=== PATIENT | female | born 1955 | race Caucasian/White ===

== ENCOUNTER 2017-11-10 14:25 | Inpatient (IN) | payer BC ==
--- NOTE | ~2017-11-10 | PN ---
PATIENT:MIQUEL REES MEDICAL RECORD: [id number] LOCATION:[facility] ADMISSION DATE: 11/10/17 PROGRESS NOTE DATE OF SERVICE: 11/13/2017 CHIEF COMPLAINT: Better. I personally reviewed her CT images. I personally reviewed the CT report. I personally discussed her case with Dr. Toledo. She does not appear to have a small-bowel obstruction. She does not appear to have an ileus. She does not appear to have active diverticulitis. There is no free air. No inflammatory changes around the sigmoid colon. No evidence of perforation. She does have diverticulosis; however. She is tolerating a liquid diet. I think we can advance her up to a regular diet. I will see her on a p.r.n. basis. When she is dismissed home, there is no need for her to follow up with me in the office. Nothing aggravates. Nothing alleviates. No peritonitis on examination. This is a progress note addendum. For the typed portion of the progress note, please see the chart. This would include the past medical and surgical history, current medications, allergies, social history as well as family history. REVIEW OF SYSTEMS: No nausea, no vomiting, no fever, no chills, no chest pain, no shortness of breath, no abdominal pain. Review of systems is negative other than as is described above. PHYSICAL EXAMINATION: GENERAL: The patient does not appear acutely ill. She does not appear chronically ill. VITAL SIGNS: Reviewed. The entire physical examination was performed in the presence of a female nurse. EARS: External ears appear normal. EYES: Extraocular movements are intact. NECK: Trachea is midline. CHEST: No intercostal retractions. PULMONARY: Nonlabored, no stridor. ABDOMEN: Nontender. EXTREMITIES: No peripheral cyanosis. INTEGUMENT: There is an intertriginous rash. BACK: No thoracic kyphosis. PSYCHIATRIC: Normal affect. NEUROLOGIC: Nonfocal, no lethargy. The patient answers questions appropriately and moves all extremities well. LYMPHATIC: No lymphangitic streaking of the exposed extremities. IMPRESSION: 1. Diverticulosis without evidence of diverticulitis. 2. No small-bowel obstruction or ileus. PLAN: Magnesium citrate for constipation. Regular diet. I will see her on a p.r.n. basis. TRANSINT:[id number] Voice Confirmation ID: [id number] DOCUMENT ID: [id number] PROGRESS NOTE [id number] MIQUEL REES, CORNELIO BEVERLY at 1607 CC: [id number] DICTATION DATE: 11/13/171933 SHELTER MONITOR: 11/14/17 1146 DIS IN 11/14/17 [place] [id number] [place] [id number]
--- NOTE | ~2017-11-10 | CN ---
PATIENT NAME:MIQUEL REES MEDICAL RECORD: [id number] : 57 LOCATION:[facility] ADMIT DATE: 11/10/17 ACCOUNT: [id number] CONSULTING PHYSICIAN: CORNELIO SANDHU MD REFERRING PHYSICIAN: JANKI JERRY MD DATE OF CONSULTATION: 11/12/2017 CHIEF COMPLAINT: None. HISTORY OF PRESENT ILLNESS: The patient recently was treated in [place]. Initially, she was treated for diverticulitis as an outpatient. She then developed a small-bowel obstruction, which required nasogastric tube decompression. It appears that the small-bowel obstruction has resolved. She is currently nontender. She has been having some epigastric pain and this is being worked up by the gastroenterologic team. She is nontender in the rest of her abdomen and there is no evidence of peritonitis to percussion or cough. I am going to order a CT scan to better determine whether she has ongoing diverticulitis or not. This will be with IV and oral contrast. I will also start her on intravenous antibiotics. This is a consultation note addendum. For the typed portion of the consultation note, please see the chart. She has no aggravating or alleviating factors. The typed portion in the chart would include the past medical and surgical history, current medications, allergies, social history as well as family history. REVIEW OF SYSTEMS: Currently without nausea or vomiting. No fever, no chills. No lower abdominal pain, only upper abdominal pain, no back pain. No headache, no shortness of breath, no chest pain. Review of systems is negative other than as is described above. PHYSICAL EXAMINATION: GENERAL: The patient does not appear acutely ill. She does not appear chronically ill. VITAL SIGNS: Reviewed. EARS: External ears appear normal. EYES: Extraocular movements are intact. NECK: Trachea is midline. CHEST: No intercostal retractions. PULMONARY: Nonlabored, no stridor. ABDOMEN: Nontender in the lower abdomen. Upper abdominal tenderness; however, without guarding. BACK: There is no kyphosis. PSYCHIATRIC: Normal affect. NEUROLOGIC: Nonfocal, no lethargy. The patient answers questions appropriately, moves all extremities well. IMPRESSION: 1. Resolved small-bowel obstruction. 2. Diverticulitis, improved. PLAN: IV antibiotics. CT of the abdomen and pelvis with IV and oral contrast in the morning. CONSULT REPORT [id number] MIQUEL REES TRANSINT:[id number] Voice Confirmation ID: [id number] DOCUMENT ID: [id number] CORNELIO SANDHU MD at 1019 CC: [id number] DICTATION DATE: 11/12/171941 PRODUCT DEVELOPMENT ECOLOGIST: 11/13/17 0130 ADM IN [facility] [address] [place] [place] [id number]
[2017-11-10] MEDS ORDERED: LEVOTHYROXINE137 MCG PO (19:59)
[2017-11-10] MEDS ORDERED: MAALOX ADVANCE355 ML PO (20:00)
[2017-11-10] MEDS ORDERED: BAYER CHEWABLE81 MG PO (20:00)
[2017-11-10 20:01] VITALS: BP 133/73; BMI 41.3
[2017-11-10] MEDS ORDERED: NAPROSYN500 MG PO (20:01)
[2017-11-10] MEDS ORDERED: PROBIOTIC250 MG PO (20:01)
[2017-11-10 20:06] LABS: BASOPHILS 0.3 % (0-2); HEMATOCRIT 36.4 % (36.0-48.0); HEMOGLOBIN 12.2 g/dL (12-16); IMMATURE GRANULOCYTES 0.1 % (0-5); LYMPHOCYTES 12.1 % (15-50); MCH 31.3 pg (26.0-34.0); MCHC 33.5 g/dL (31.0-37.0); MCV 93.3 fL (80.0-100.0); MEAN PLATELET VOLUME 11.4 fL (7.4-10.4); MONOCYTES 7.8 % (2-11); NEUTROPHILS 78.7 % (40-80); PLATELET COUNT 165 10x3/uL (130-400); RDW 12.7 % (11.5-14.5); WBC 7.8 10x3/uL (4.8-10.8)
[2017-11-10 20:21] LABS: ALBUMIN 3.4 g/dL (3.4-5.0); ALKALINE PHOSPHATASE 66 U/L (46-116); ALT (SGPT) 98 U/L (10-68); BILIRUBIN - TOTAL 1.88 mg/dL (0.2-1.3); CALC OSMOLALITY 276 mosm/kg (275-300); CALCIUM 8.5 mg/dL (8.5-10.1); CARBON DIOXIDE 25.5 mmol/L (21.0-32.0); CHLORIDE - SERUM 105 mmol/L (98-107); CREATININE - SERUM 0.6 mg/dL (0.6-1.3); GLUCOSE 108 mg/dL (74-106); MAGNESIUM - SERUM 1.9 mg/dL (1.8-2.4); PHOSPHOROUS 2.8 mg/dL (2.5-4.9); POTASSIUM - SERUM 3.4 mmol/L (3.5-5.1); PROTEIN - SERUM 6.2 g/dL (6.4-8.2); SODIUM 139 mmol/L (136-145); UREA NITROGEN 6 mg/dL (7-18); eGFR NON AFRICAN AMERICAN > 90 mL/min (90-120)
[2017-11-10 22:10] VITALS: BP 138/73
[2017-11-11 01:01] VITALS: BP 146/67
[2017-11-11 05:30] LABS: BASOPHILS 0.1 % (0-2); EOSINOPHILS 1.9 % (0-7); HEMATOCRIT 35.6 % (36.0-48.0); HEMOGLOBIN 11.7 g/dL (12-16); IMMATURE GRANULOCYTES 0.1 % (0-5); LYMPHOCYTES 11.5 % (15-50); MCH 31.1 pg (26.0-34.0); MCHC 32.9 g/dL (31.0-37.0); MCV 94.7 fL (80.0-100.0); MONOCYTES 7.8 % (2-11); NEUTROPHILS 78.6 % (40-80); PLATELET COUNT 152 10x3/uL (130-400); RBC 3.76 10x6/uL (4.00-5.40); RDW 12.8 % (11.5-14.5); WBC 7.3 10x3/uL (4.8-10.8)
[2017-11-11 05:39] VITALS: BP 176/66
[2017-11-11 05:47] LABS: ALBUMIN 3.3 g/dL (3.4-5.0); ALKALINE PHOSPHATASE 63 U/L (46-116); ALT (SGPT) 87 U/L (10-68); CALC OSMOLALITY 277 mosm/kg (275-300); CARBON DIOXIDE 23.3 mmol/L (21.0-32.0); CHLORIDE - SERUM 106 mmol/L (98-107); CREATININE - SERUM 0.6 mg/dL (0.6-1.3); GLUCOSE 113 mg/dL (74-106); MAGNESIUM - SERUM 2.2 mg/dL (1.8-2.4); PHOSPHOROUS 3.2 mg/dL (2.5-4.9); POTASSIUM - SERUM 3.2 mmol/L (3.5-5.1); PROTEIN - SERUM 5.9 g/dL (6.4-8.2); SODIUM 140 mmol/L (136-145); UREA NITROGEN 6 mg/dL (7-18); eGFR NON AFRICAN AMERICAN > 90 mL/min (90-120)
[2017-11-11 10:00] VITALS: BP 159/74
[2017-11-11 15:16] LABS: AMYLASE - SERUM 57 U/L (25-115); LIPASE 208 U/L (73-393)
[2017-11-11 16:01] VITALS: BP 198/90
[2017-11-11 16:01] LABS: APPEARANCE CLEAR (CLEAR); BILIRUBIN NEGATIVE (NEGATIVE); COLOR YELLOW (YELLOW); GLUCOSE NEGATIVE (NEGATIVE); KETONE LARGE mg/dL (NEGATIVE); NITRITE NEGATIVE (NEGATIVE); PROTEIN NEGATIVE (NEGATIVE); UROBILINOGEN NORMAL (NORMAL)
[2017-11-11 17:43] LABS: INR 1.09 (0.85-1.17); PROTIME 13.7 SECONDS (11.6-15.0)
[2017-11-11 21:55] VITALS: BP 193/79
[2017-11-12 00:40] VITALS: BP 177/73
[2017-11-12 04:25] LABS: BASOPHILS 0.1 % (0-2); EOSINOPHILS 2.8 % (0-7); HEMATOCRIT 35.4 % (36.0-48.0); HEMOGLOBIN 11.7 g/dL (12-16); IMMATURE GRANULOCYTES 0.3 % (0-5); LYMPHOCYTES 15.5 % (15-50); MCH 30.9 pg (26.0-34.0); MCHC 33.1 g/dL (31.0-37.0); MCV 93.4 fL (80.0-100.0); MEAN PLATELET VOLUME 11.6 fL (7.4-10.4); MONOCYTES 7.7 % (2-11); NEUTROPHILS 73.6 % (40-80); PLATELET COUNT 172 10x3/uL (130-400); RBC 3.79 10x6/uL (4.00-5.40); RDW 12.7 % (11.5-14.5); WBC 7.2 10x3/uL (4.8-10.8)
[2017-11-12 04:50] VITALS: BP 163/73
[2017-11-12 04:50] LABS: ALBUMIN 3.2 g/dL (3.4-5.0); ALKALINE PHOSPHATASE 64 U/L (46-116); ALT (SGPT) 68 U/L (10-68); CALC OSMOLALITY 277 mosm/kg (275-300); CARBON DIOXIDE 21.6 mmol/L (21.0-32.0); CHLORIDE - SERUM 106 mmol/L (98-107); CREATININE - SERUM 0.6 mg/dL (0.6-1.3); GLUCOSE 81 mg/dL (74-106); MAGNESIUM - SERUM 2.1 mg/dL (1.8-2.4); PHOSPHOROUS 3.4 mg/dL (2.5-4.9); POTASSIUM - SERUM 3.7 mmol/L (3.5-5.1); PROTEIN - SERUM 6.1 g/dL (6.4-8.2); SODIUM 141 mmol/L (136-145); UREA NITROGEN 6 mg/dL (7-18); eGFR NON AFRICAN AMERICAN > 90 mL/min (90-120)
[2017-11-12 08:19] VITALS: BP 173/64; BP 95/59
[2017-11-12 12:54] VITALS: BP 195/79
[2017-11-12 14:58] VITALS: BMI 41.2
[2017-11-12 20:00] VITALS: BP 123/63
[2017-11-13 04:00] VITALS: BP 138/88
[2017-11-13 05:29] LABS: BASOPHILS 0 % (0-2); EOSINOPHILS 0 % (0-7); HEMATOCRIT 37.6 % (36.0-48.0); HEMOGLOBIN 12.9 g/dL (12-16); IMMATURE GRANULOCYTES 0.3 % (0-5); MCH 31.4 pg (26.0-34.0); MCHC 34.3 g/dL (31.0-37.0); MCV 91.5 fL (80.0-100.0); MEAN PLATELET VOLUME 11.9 fL (7.4-10.4); MONOCYTES 1.3 % (2-11); NEUTROPHILS 89.4 % (40-80); RBC 4.11 10x6/uL (4.00-5.40); RDW 12.5 % (11.5-14.5); WBC 6.9 10x3/uL (4.8-10.8)
[2017-11-13 05:31] LABS: PLATELET COUNT 215 10x3/uL (130-400)
[2017-11-13 05:47] LABS: ALBUMIN 3.4 g/dL (3.4-5.0); ALKALINE PHOSPHATASE 76 U/L (46-116); ALT (SGPT) 74 U/L (10-68); CALC OSMOLALITY 280 mosm/kg (275-300); CALCIUM 8.5 mg/dL (8.5-10.1); CARBON DIOXIDE 13.8 mmol/L (21.0-32.0); CHLORIDE - SERUM 108 mmol/L (98-107); CREATININE - SERUM 0.6 mg/dL (0.6-1.3); GLUCOSE 136 mg/dL (74-106); PHOSPHOROUS 3.6 mg/dL (2.5-4.9); POTASSIUM - SERUM 4.1 mmol/L (3.5-5.1); SODIUM 141 mmol/L (136-145); UREA NITROGEN 8 mg/dL (7-18); eGFR NON AFRICAN AMERICAN > 90 mL/min (90-120)
[2017-11-13 08:13] VITALS: BP 194/87
[2017-11-13 12:53] VITALS: BP 200/103
[2017-11-13 15:25] LABS: HEPATITIS C ANTIBODY <0.1 (0.0-0.9)
[2017-11-13 16:18] VITALS: BP 199/85
[2017-11-13 20:00] VITALS: BP 153/67
[2017-11-14 04:00] VITALS: BP 100/76
[2017-11-14 08:00] VITALS: BP 181/92
[2017-11-14] MEDS ORDERED: ANUSOL-HC25 MG RC (10:47)
[2017-11-14] MEDS ORDERED: CARAFATE1 G/10 ML NG (10:49)
[2017-11-14] MEDS ORDERED: PROTONIX40 MG PO (10:50)
[2017-11-19 03:06] LABS: OVA + PARASITE EXAM Final report (())
== END 2017-11-14 11:38 | disposition home or self-care (01) | DRG 388 ==
LOC: D.MS 14:25
PROVIDERS: Emergency Medicine; Internal Medicine Gastroenterology
PROC: 0DB78ZX Excision of Stomach, Pylorus, Via Natural or Artificial Opening Endoscopic, Diagnostic (ICD-10-PCS; 2017-11-12)
PROC: 0DB98ZX Excision of Duodenum, Via Natural or Artificial Opening Endoscopic, Diagnostic (ICD-10-PCS; principal; 2017-11-12 17:00)
DX: K56.600 Partial intestinal obstruction, unspecified as to cause (principal); K29.71 Gastritis, unspecified, with bleeding; K25.4 Chronic or unspecified gastric ulcer with hemorrhage; K57.92 Diverticulitis of intestine, part unspecified, without perforation or abscess without bleeding; D62 Acute posthemorrhagic anemia; K56.7 Ileus, unspecified; I10 Essential (primary) hypertension; K76.0 Fatty (change of) liver, not elsewhere classified; K20.9 Esophagitis, unspecified; K29.80 Duodenitis without bleeding

== ENCOUNTER 2018-12-05 08:57 | Outpatient (CLI) | payer MEDICAID ==
[~2018-12-05] VITALS: Ht 162.6 cm; Wt 100.0 kg
[~2018-12-05 08:57] MED LIST: ANUSOL-HC25 MG RC; BAYER CHEWABLE81 MG PO; CARAFATE1 G/10 ML NG; LEVOTHYROXINE137 MCG PO; MAALOX ADVANCE355 ML PO; NAPROSYN500 MG PO; PROBIOTIC250 MG PO; PROTONIX40 MG PO
[2018-12-05] MEDS ORDERED: PEPCID AC20 MG PO (09:40)
[2018-12-05] MEDS ORDERED: CLARITIN 10 MG10 MG PO (09:42)
[2018-12-05] MEDS ORDERED: HYDROCHLOROTHIA25 MG PO (09:42)
[2018-12-05] MEDS ORDERED: CARAFATE1 G PO (09:42)
[2018-12-05] MEDS ORDERED: ALDACTONE25 MG PO (09:43)
[2018-12-05] MEDS ORDERED: OS-CAL500 MG PO (09:44)
[2018-12-05] MEDS ORDERED: GAS-X125 M1 PO (09:45)
[2018-12-05 10:04] VITALS: Ht 162.6 cm; Wt 100.0 kg
[2018-12-05 10:37] LABS: BASOPHILS 0.2 % (0-2); EOSINOPHILS 0.7 % (0-7); HEMATOCRIT 41.3 % (36.0-48.0); HEMOGLOBIN 14.3 g/dL (12-16); IMMATURE GRANULOCYTES 0.1 % (0-5); LYMPHOCYTES 13.2 % (15-50); MCHC 34.6 g/dL (31.0-37.0); MCV 89.4 fL (80.0-100.0); MEAN PLATELET VOLUME 11.7 fL (7.4-10.4); MONOCYTES 7.7 % (2-11); NEUTROPHILS 78.1 % (40-80); RBC 4.62 10x6/uL (4.00-5.40); RDW 12.4 % (11.5-14.5)
[2018-12-05 10:44] LABS: PLATELET COUNT 301 10x3/uL (130-400)
[2018-12-05 10:56] LABS: APTT 29.8 SECONDS (22.8-39.4); INR 1.05 (0.85-1.17); PROTIME 13.2 SECONDS (11.6-15.0)
[2018-12-05 11:15] LABS: CALC OSMOLALITY 279 mosm/kg (275-300); CALCIUM 8.7 mg/dL (8.5-10.1); CARBON DIOXIDE 27.3 mmol/L (21.0-32.0); CHLORIDE - SERUM 102 mmol/L (98-107); CREATININE - SERUM 0.7 mg/dL (0.6-1.3); GLUCOSE 112 mg/dL (74-106); POTASSIUM - SERUM 3.4 mmol/L (3.5-5.1); SODIUM 140 mmol/L (136-145); UREA NITROGEN 12 mg/dL (7-18); eGFR NON AFRICAN AMERICAN 90 mL/min (90-120)
[2018-12-05 15:18] LABS: PROTEIN - BODY FLUID 4.9 G/DL
[2018-12-05 16:03] LABS: MACROPHAGES BF 7 %; NEUT - BF 83 %
[2018-12-06] MEDS ORDERED: HYDROCODON-ACE1 EAC7 PO (13:19)
[2018-12-06] MEDS ORDERED: CYCLOBENZAPRINE10 MG PO (13:19)
== END 2018-12-05 16:30 | disposition home or self-care (01) ==
LOC: D.CT 08:57 → D.OPS 08:57 → D.CT 11:00 → D.SP 11:00 → D.CT 13:00 → D.OPS 16:30
PROVIDERS: Specialist; ATTEND Internal Medicine Gastroenterology
DX: R18.8 Other ascites (principal); Z01.812 Encounter for preprocedural laboratory examination

== ENCOUNTER 2018-12-06 10:26 | Emergency (ER) | payer BC ==
[~2018-12-06] VITALS: Ht 162.6 cm; Wt 100.0 kg
[~2018-12-06 10:26] MED LIST changes: +ALDACTONE25 MG PO; +CARAFATE1 G PO; +CLARITIN 10 MG10 MG PO; +GAS-X125 M1 PO; +HYDROCHLOROTHIA25 MG PO; +OS-CAL500 MG PO; +PEPCID AC20 MG PO
[2018-12-06 10:47] VITALS: Ht 162.6 cm; Wt 100.0 kg
[2018-12-06 11:49] LABS: BASOPHILS 0.3 % (0-2); EOSINOPHILS 0.5 % (0-7); HEMATOCRIT 41.6 % (36.0-48.0); HEMOGLOBIN 14.6 g/dL (12-16); IMMATURE GRANULOCYTES 0.1 % (0-5); MCH 31.4 pg (26.0-34.0); MCHC 35.1 g/dL (31.0-37.0); MCV 89.5 fL (80.0-100.0); MEAN PLATELET VOLUME 11.2 fL (7.4-10.4); MONOCYTES 8.9 % (2-11); NEUTROPHILS 77.2 % (40-80); PLATELET COUNT 307 10x3/uL (130-400); RBC 4.65 10x6/uL (4.00-5.40); RDW 12.3 % (11.5-14.5); WBC 7.3 10x3/uL (4.8-10.8)
[2018-12-06 12:04] LABS: ALBUMIN 3.4 g/dL (3.4-5.0); ALKALINE PHOSPHATASE 127 U/L (46-116); ALT (SGPT) 29 U/L (10-68); AMYLASE - SERUM 58 U/L (25-115); BILIRUBIN - TOTAL 1.64 mg/dL (0.2-1.3); C-REACTIVE PROTEIN 8.6 mg/dL (0.0-0.9); CALC OSMOLALITY 272 mosm/kg (275-300); CALCIUM 8.7 mg/dL (8.5-10.1); CARBON DIOXIDE 26.4 mmol/L (21.0-32.0); CHLORIDE - SERUM 100 mmol/L (98-107); CREATININE - SERUM 0.7 mg/dL (0.6-1.3); GLUCOSE 125 mg/dL (74-106); LIPASE 251 U/L (73-393); POTASSIUM - SERUM 3.4 mmol/L (3.5-5.1); PROTEIN - SERUM 7.3 g/dL (6.4-8.2); SODIUM 137 mmol/L (136-145); eGFR NON AFRICAN AMERICAN 90 mL/min (90-120)
[2018-12-06 12:05] LABS: UREA NITROGEN 6 mg/dL (7-18)
[2018-12-06] MEDS ORDERED: CYCLOBENZAPRINE10 MG PO (13:19)
[2018-12-06] MEDS ORDERED: HYDROCODON-ACE1 EAC7 PO (13:19)
[2018-12-06 14:15] VITALS: BP 147/97
== END 2018-12-06 14:15 | disposition home or self-care (01) ==
LOC: D.ER 10:26
PROVIDERS: Emergency Medicine
DX: R14.0 Abdominal distension (gaseous) (principal); G89.18 Other acute postprocedural pain; Z98.890 Other specified postprocedural states

== ENCOUNTER 2018-12-07 20:26 | Inpatient (IN) | payer BC ==
[~2018-12-07] VITALS: Ht 162.6 cm; Wt 101.4 kg
--- NOTE | ~2018-12-07 | HEMODYNAMI ---
PATIENT:MIQUEL REES MEDICAL RECORD: [id number] : 57 LOCATION:[facility].2109 ADMISSION DATE: 12/07/18 Generatedon:12/11/201812:55 Patient name: MIQUEL REES Patient #: [id number] SSN: : [id number] Date of study: 12/11/2018 Page: Of Hemodynamic Procedure Report Patient Data Patient Demographics Procedure consent was obtained First Name: MIQUEL Gender: Female Last Name: CABRERA : 1955 [facility] Initial: SEYMOUR Age: 63 year(s) Patient #: [id number] Race: Unknown Additional ID: [id number] Contact details Address: [address] [place] [address] State: [place] City: [place] Zip code: [address] Past Medical History Allergies Allergen Reaction Date Comments Reported Other allergy 12/11/2018 PCN Admission Admission Data Admission Date: 12/07/2018 Admission Time: 21:27 Room #: [facility] Procedure Procedure Types Cath Procedure Peripheral Cath Diagnostic Procedure Liver Liver Biopsy T-Cath Procedure Description Procedure Date Procedure Date: 12/11/2018 Procedure Start Time: 12:06 Procedure End Time: 12:55 Procedure Staff Name Function Helen Uribe MD Performing Physician Brie Yang Monitor Cydney Dotson RN Nurse Chase Minaya RT Scrub Procedure Data Cath Procedure Fluoroscopy Diagnostic fluoroscopy Total fluoroscopy Time: time: 15.9 min 15.9 min Diagnostic fluoroscopy Total fluoroscopy dose: 787 dose: 787 mGy mGy Contrast Material Contrast Material Type Amount (ml) Isovue 300 25 Diagnostic catheters Device Type Used For End Catheter Placement Merit Impress KA2 5Fr Ventriculography 65CM catheter ([id number]) Procedure Medications Medication Administration Route Dosage Heparin Flush Bag added to field 1 bags (1000units/500ml NS) Lidocaine 1% added to field 20 Versed I.V. 1 mg Fentanyl I.V. 50 mcg Versed I.V. 1 mg Fentanyl I.V. 50 mcg Versed I.V. 2 mg Fentanyl I.V. 50 mcg Fentanyl I.V. 50 mcg Hemodynamics Rest Heart Rate: 102 (bpm) Snapshots Pre Cath Intra NCS Post Cath Vital Signs Time Heart Resp SPO2 etCO2 NIBP (mmHg) Rhythm Pain Sedation Rate (ipm) (%) (mmHg) Status Level (bpm) 11:39:15 103 8 25.1 148/49(125) NSR 0 (11) 10(A) , No pain 11:43:42 103 15 28.8 158/62(108) NSR 0 (11) 10(A) , No pain 11:47:58 104 23 34.9 166/89(113) NSR 0 (11) 10(A) , No pain 11:52:14 103 21 100 37.2 162/89(116) NSR 0 (11) 9(A) , No pain 11:56:32 103 21 100 34.2 154/85(121) NSR 0 (11) 9(A) , No pain 12:00:46 105 20 100 34.2 159/89(118) NSR 0 (11) 9(A) , No pain 12:05:00 102 22 100 28.9 157/92(115) NSR 0 (11) 9(A) , No pain 12:07:07 97 16 100 31.9 126/70(101) NSR 0 (11) 8(A) , No pain 12:12:02 97 17 98 31.2 146/84(113) NSR 0 (11) 8(A) , No pain 12:16:16 97 11 98 25.8 138/82(108) NSR 0 (11) 8(A) , No pain 12:20:26 99 17 98 35 147/85(118) NSR 0 (11) 8(A) , No pain 12:24:38 100 19 99 32.6 152/88(119) NSR 0 (11) 8(A) , No pain 12:28:52 100 12 99 44.1 145/83(125) NSR 0 (11) 8(A) , No pain 12:33:04 103 17 99 27.3 155/82(115) NSR 0 (11) 8(A) , No pain 12:37:22 102 15 98 0.7 139/77(107) NSR 0 (11) 8(A) , No pain 12:41:29 105 14 98 25 157/89(115) NSR 0 (11) 8(A) , No pain 12:45:44 105 12 98 12.1 161/92(127) NSR 0 (11) 8(A) , No pain 12:50:01 103 11 98 0 162/84(116) NSR 0 (11) 8(A) , No pain 12:54:20 107 10 97 28.1 151/84(106) NSR 0 (11) 8(A) , No pain Medications Time Medication Route Dose Verified Delivered Reason Notes Effe ctiveness by by 11:49:30 Heparin Flush added 1 M J Long M J Long used for Bag to bags MD BEVERLY procedure (1000units/500ml field NS) 11:49:42 Lidocaine 1% added 20ml M J Long M J Long for local to vial MD BEVERLY anesthetic field 12:05:44 Versed I.V. 1 mg M J Long Cydney for MD Mauri RIVERA sedation 12:05:55 Fentanyl I.V. 50 M J Long Cydney for mcg MD Dotson RN sedation 12:19:53 Versed I.V. 1 mg M J Long Cydney for MD Dotson RN sedation 12:20:08 Fentanyl I.V. 50 M J Long Cydney for mark Dotson RN sedation 12:25:41 Versed I.V. 2 mg M J Long Cydney for MD Dotson RN sedation 12:33:35 Fentanyl I.V. 50 M J Long Cydney for mark Dotson RN sedation 12:42:50 Fentanyl I.V. 50 M J Long Cydney for [facility] MD Dotson RN sedation Procedure Log Time Note 11:29:46 Chase Minaya RT (R) (CV) sent for patient. Start room use. 11:29:50 Time tracking: Regular hours (M-F 7:00 - 5:00) 11:30:06 Plan of Care:Hemodynamics will remain stable., Cardiac rhythm will remain stable., Comfort level will be maintained., Respiratory function will remain adequate., Patient/ family verbilizes understanding of procedure., Procedure tolerated without complication., Recovers from procedure without complications.. 11:30:18 Patient received from Med II to IR Alert and oriented. Tansferred to table in Supine position. 11:30:25 Warm blankets applied, and ishaan hugger turned on for patient comfort. 11:30:27 Correct patient and procedure confirmed by team. 11:30:33 Signed procedure consent form obtained from patient. 11:30:36 ECG and BP/O2 sat monitors applied to patient. 11:30:38 - 11:30:59 H&P Date Dictated: 12/11/2018 Within 30 days and on chart.. 11:31:01 Pre-procedure instructions explained to patient. 11:31:03 Pre-op teaching completed and patient verbalized understanding. 11:31:07 Family in waiting room. 11:31:11 Patient NPO since Midnight. 11:37:26 KIT LIVER BX ACCESS ([id number]) opened to sterile field. 11:37:54 Patient allergic to Other allergyPCN,CODINE,TORADOL. 11:38:04 Vital chart was started 11:39:08 Baseline sample Acquired. 11:39:21 Is the patient allergic to Iodine/contrast media? No. 11:39:42 Is patient on blood thinner?No 11:39:46 Patient diabetic? No. 11:39:53 ----Pre-sedation anethsthesia assessment.---- 11:39:59 Snore? Yes 11:40:02 Sleep apnea? No 11:40:05 Deviated septum? No 11:40:07 Opens mouth fully? Yes 11:40:10 Sticks out tongue? Yes 11:40:18 Dentures? No ? 11:40:36 IV patent on arrival in right wrist with 0.9% NaCl at [facility]. 11:40:53 Right Internal jugular was prepped with chlora-prep and draped in sterile fashion. 11:40:56 Alarms reviewed. 11:40:58 Sharps counted by scrub and verified. 11:41:32 Use device set IR Diagnostic 11:41:42 Bag Decanter (2002S) opened to sterile field. 11:41:43 Sterile Angiographic Pack opened to sterile field. 11:41:44 Tegaderm 4 x 4 (1626W) opened to sterile field. 11:46:37 Micropuncture VSI 4FR kit opened to sterile field. 11:49:30 Heparin Flush Bag (1000units/500ml NS) 1 bags added to field was administered by Helen Uribe MD; used for procedure; 11:49:42 Lidocaine 1% 20ml vial added to field was administered by Helen Uribe MD; for local anesthetic; 11:52:35 DOC .035 wire (S77730) opened to sterile field. 12:01:02 DILATOR, VESSEL 8/20 opened to sterile field. 12:02:02 Physician arrived 12:02:04 --------ALL STOP TIME OUT------ 12:02:11 Final Timeout: patient, procedure, and site verified with staff and physician. All members of the team are in agreement. 12:02:21 Right neck site verified by team. 12:03:17 Sedation plan: IV Moderate Sedation Medication:Versed, Fentanyl, Lidocaine 12:03:26 Procedure started. 12:03:26 Full Disclosure recording started 12:05:44 Versed 1 mg I.V. was administered by Cydney Dotson RN; for sedation; 12:05:55 Fentanyl 50 mcg I.V. was administered by Cydney Dotson RN; for sedation ; 12:06:03 Local anesthetic to right IJ vein with Lidocaine 1% by Helen Uribe MD.INITIAL ACCESS ONLY 12:11:40 Access obtained with 4Fr micropunture. 12:14:27 THE 0.35 J WIRE IS USED TO MANUVER INTO THE SUP VENA CAVA. 12:14:58 A Reppify Impress KA2 5Fr 65CM catheter ([id number]) was advanced over the wire. 12:17:09 AN INJECTION IS MADE IN THE LIVER. 12:18:26 THE SHEATH FROM BX KIT IS INSERTED INTO THE RIGHT IJ. 12:19:52 MAGIC TORQUE 180cm 0.035 wire ([id number]) opened to sterile field. 12:19:53 Versed 1 mg I.V. was administered by Cydney Dotson RN; for sedation; 12:20:08 Fentanyl 50 mcg I.V. was administered by Cydney Dotson RN; for sedation ; 12:20:28 GLIDE WIRE ANGLE 180cm (VI9956) opened to sterile field. 12:25:41 Versed 2 mg I.V. was administered by Cydney Dotson RN; for sedation; 12:26:08 AMPLATZ Super stiff 180cm wire ([id number]) opened to sterile field. 12:27:13 THE GLIDEWIRE IS REMOVED AND AN AMPLATZ WIRE IS USED TO MANUVER INTO POSITION. 12:31:01 Brush 180 wire ([id number]) opened to sterile field. 12:31:37 THE AMPLATZ IS REMOVED AND A BRUSH IS USED TO TRY TO POSITION. 12:33:35 Fentanyl 50 mcg I.V. was administered by Cydney Dotson RN; for sedation ; 12:35:33 AN INJECTION IS MADE IN THE DISTAL VENA CAVA. 12:41:00 A BIOPSY FORCEP FORM THE BIOPSY KIT IS USED TO OBTAIN THE SPECIMINE. 12:42:50 Fentanyl 50 mcg I.V. was administered by Cydney Dotson RN; for sedation ; 12:45:31 Procedure ended.(Physican Out) 12:46:34 Fluoroscopy time 15.90 minutes. 12:46:47 Fluoroscopy dose: 787 mGy 12:46:47 Flurop Dose total: 787 12:46:59 Contrast amount:Isovue 300 25ml. 12:48:02 EVERYTHING IS REMOVED. 12:48:12 Sharps counted by scrub and verified. 12:48:41 Insertion/operative site no bleeding no hematoma. 12:48:51 Post-op/insertion site Right Jugular vein dressed using a 4 x 4 and Tegaderm. 12:48:58 Post procedure instruction explained to patient.Patient verbalizes understanding. 12:49:02 Patient needs reinforcement of post procedure teaching. 12:49:07 Procedure and supply charges have been captured, reviewed, submitted an d are correct. 12:52:36 See physician's report for complete and final results. 12:52:40 Report given to Med II. 12:55:00 Patient transfered to Med II with Bed. 12:55:04 Procedure ended. 12:55:04 Full Disclosure recording stopped 12:55:38 Vital chart was stopped Device Usage Item Name Manufacture Quantity Catalog Hospital Part Current Minima l Lot# / Number Charge Number Stock Stock Serial# Code KIT LIVER BX [facility] 1 [id number] 655402 [id number] 5 [id number] ACCESS ([id number]) Bag Decanter Microtek 1 2001S 737038 15325 366757 5 (2001S) Medical Inc. Sterile Cardinal 1 [id number] 190917 493144 5 Angiographic Health Pack Tegaderm 4 x 3M 1 1626W 406168 200912 235054 5 4 (1626W) Micropuncture VSI VASCULAR 1 7266V 907521 254940 5 VSI 4FR kit SOLUTIONS DOC .035 wire [employer] 1 W79291 157142 574355 5 ([id number]) DILATOR, [employer] 1 W92901 254602 72549 684674 5 VESSEL 05/06 Merit Impress Merit 1 [id number] 270884 471241 5 [id number] KA2 5Fr 65CM Medical catheter ([id number]) MAGIC TORQUE [employer] 1 [id number] 244792 444726 327570 1 180cm 0.035 Scientific wire ([id number]) GLIDE WIRE Terumo 1 XR9947 389382 088624 837289 5 ANGLE 180cm (UO3396) GLIDE WIRE Terumo 1 OO6888 996220 406135 5 .035 180CM STRAIGHT ([id number]) AMPLATZ Super [employer] 1 [id number] 108534 836050 542558 5 [id number] stiff 180cm Scientific wire ([id number]) Rbush 180 [employer] 1 G61118 026203 584679 5122015 5 [id number] wire ([id number]) Signature Audit [place] Stage Time Signature Unsigned Intra-Procedure 12/11/2018 Brie 12:55:34 PM Trey Signatures Monitor : Brie Signature : Trey Date : Time : [place] [id number] [place] [address]
[~2018-12-07 20:26] MED LIST changes: +CYCLOBENZAPRINE10 MG PO; +HYDROCODON-ACE1 EAC7 PO
[2018-12-07 21:33] LABS: BASOPHILS 0.1 % (0-2); EOSINOPHILS 1.6 % (0-7); HEMATOCRIT 43.7 % (36.0-48.0); HEMOGLOBIN 15.3 g/dL (12-16); IMMATURE GRANULOCYTES 0.2 % (0-5); LYMPHOCYTES 16.9 % (15-50); MCH 31.2 pg (26.0-34.0); MCV 89.2 fL (80.0-100.0); MEAN PLATELET VOLUME 11.7 fL (7.4-10.4); MONOCYTES 8.3 % (2-11); NEUTROPHILS 72.9 % (40-80); RDW 11.8 % (11.5-14.5)
--- NOTE | 2018-12-07 21:41 | NUR ---
DR ZARAGOZA AND DELORIS THORNTON AT PT BEDSIDE.
[2018-12-07 21:42] VITALS: BP 133/93
[2018-12-07 21:42] LABS: PLATELET COUNT 396 10x3/uL (130-400); WBC 10.1 10x3/uL (4.8-10.8)
[2018-12-07 21:48] LABS: ALBUMIN 3.5 g/dL (3.4-5.0); ALKALINE PHOSPHATASE 143 U/L (46-116); ALT (SGPT) 33 U/L (10-68); BILIRUBIN - TOTAL 1.15 mg/dL (0.2-1.3); C-REACTIVE PROTEIN 13.4 mg/dL (0.0-0.9); CALC OSMOLALITY 270 mosm/kg (275-300); CALCIUM 8.9 mg/dL (8.5-10.1); CARBON DIOXIDE 27.9 mmol/L (21.0-32.0); CHLORIDE - SERUM 97 mmol/L (98-107); CREATININE - SERUM 0.8 mg/dL (0.6-1.3); GLUCOSE 122 mg/dL (74-106); POTASSIUM - SERUM 3.2 mmol/L (3.5-5.1); PROTEIN - SERUM 7.6 g/dL (6.4-8.2); SODIUM 136 mmol/L (136-145); UREA NITROGEN 7 mg/dL (7-18); eGFR NON AFRICAN AMERICAN 77 mL/min (90-120)
--- NOTE | 2018-12-07 22:18 | NUR ---
REPORT RECEIVED FROM ESTELLA TREVIZO RN. PT ARRIVED TO FLOOR, NO S/S OF DISTRESS NOTED. INTRODUCED SELF TO PT. CALL LIGHT IN REACH. FAMILY AT BEDSIDE.
[2018-12-07 23:55] VITALS: BP 122/84
[2018-12-08] VITALS (7 sets, daily range): BP systolic 111–139; BP diastolic 72–93; BMI 36.1
--- NOTE | 2018-12-08 01:51 | NUR ---
PT LYING IN BED WITH EYES OPEN, RR EVEN AND UNLABORED. AT BEDSIDE. ORDERED ANTIBIOTICS INFUSING THROUGH RIGHT AC PIV. NO S/S OF DISTRESS NOTED. CALL LIGHT IN REACH. WILL CTM.
[2018-12-08 04:53] LABS: BASOPHILS 0.3 % (0-2); EOSINOPHILS 0 % (0-7); HEMATOCRIT 40.6 % (36.0-48.0); HEMOGLOBIN 13.9 g/dL (12-16); IMMATURE GRANULOCYTES 0.1 % (0-5); LYMPHOCYTES 20.5 % (15-50); MCH 30.4 pg (26.0-34.0); MCHC 34.2 g/dL (31.0-37.0); MCV 88.8 fL (80.0-100.0); MEAN PLATELET VOLUME 11.4 fL (7.4-10.4); MONOCYTES 9.9 % (2-11); NEUTROPHILS 69.2 % (40-80); PLATELET COUNT 318 10x3/uL (130-400); RBC 4.57 10x6/uL (4.00-5.40); WBC 7.8 10x3/uL (4.8-10.8)
[2018-12-08 05:17] LABS: APTT 31.5 SECONDS (22.8-39.4); INR 1.12 (0.85-1.17); PROTIME 13.9 SECONDS (11.6-15.0)
[2018-12-08 05:21] LABS: % SATURATION 14 % (15-55); IRON 34 ug/dl (35-150); TOTAL IRON BIND CAPACITY 239 ug/dl (260-445); UNSAT IRON BIND CAPACITY 205 ug/dl (150-375)
[2018-12-08 05:36] LABS: ALKALINE PHOSPHATASE 123 U/L (46-116); ALT (SGPT) 33 U/L (10-68); AMYLASE - SERUM 44 U/L (25-115); BILIRUBIN - TOTAL 1.21 mg/dL (0.2-1.3); CALC OSMOLALITY 271 mosm/kg (275-300); CALCIUM 8.5 mg/dL (8.5-10.1); CARBON DIOXIDE 26.2 mmol/L (21.0-32.0); CHLORIDE - SERUM 100 mmol/L (98-107); CHOL - HDL RATIO 4.8 ratio (2.3-4.1); CHOLESTEROL, TOTAL 152 mg/dL (0-200); CREATININE - SERUM 0.7 mg/dL (0.6-1.3); FERRITIN 198 ng/mL (3-244); GLUCOSE 130 mg/dL (74-106); HDL CHOLESTEROL 32 mg/dL (32-96); LDL CHOLESTEROL 103 mg/dL (0-100); LDL-HDL RATIO 3.2 ratio (1.5-3.5); LIPASE 162 U/L (73-393); POTASSIUM - SERUM 3.1 mmol/L (3.5-5.1); PRE-ALBUMIN 13.3 mg/dL (18.0-35.7); PROTEIN - SERUM 6.7 g/dL (6.4-8.2); SODIUM 136 mmol/L (136-145); TRIGLYCERIDE 86 mg/dL (30-200); UREA NITROGEN 8 mg/dL (7-18); eGFR NON AFRICAN AMERICAN 90 mL/min (90-120)
--- NOTE | 2018-12-08 05:47 | NUR ---
ORTHOSTATIC VITALS: LYING 111/76, PULSE 97, 98% ROOM AIR. SITTING 133/86, PULSE 103, 96% ROOM AIR STANDING 118/77, PULSE 109, 96% ROOM AIR
--- NOTE | 2018-12-08 07:00 | NUR ---
RECEIVED BEDSIDE SHIFT REPORT. ASSUMED CARE OF PATIENT. RESTING IN BED WITH EYES OPEN. CALL LIGHT WITHIN REACH. PATIENT SPOUSE AT BEDSIDE. PATIENT NPO THIS AM FOR PARACENTESIS. PATIENT AWARE TO NOT EAT AND DRINK UNTIL AFTER PROCEDURE. NO DISTRESS. DENIES PAIN.
--- NOTE | 2018-12-08 11:31 | NUR ---
PATIENT LEFT FOR PARACENTESIS AT THIS TIME. NO DISTRESS UPON LEAVING UNIT.
--- NOTE | 2018-12-08 16:01 | NUR ---
K+ SUPPLEMENT ADMINISTERED AT THIS TIME. NO DISTRESS.
--- NOTE | 2018-12-08 18:04 | NUR ---
SCDS NOT APPLIED. PATIENT IS AMBULATORY. PATIENT IS SELF CARE.
--- NOTE | 2018-12-08 19:31 | NUR ---
EVENING ROUNDS COMPLETED. REPORT RECEIVED. PT SITTING UP IN BED WITH EYES OPEN, RR EVEN AND UNLABORED. BED IN LOW POSITION. NO S/S OF DISTRESS. INTRODUCED SELF TO PT. PT DENIES FURTHER NEEDS, AT BEDSIDE. CALL LIGHT IN REACH. WILL CTM.
[2018-12-08 22:47] LABS: APPEARANCE CLEAR (CLEAR); BILIRUBIN NEGATIVE (NEGATIVE); COLOR YELLOW (YELLOW); GLUCOSE NEGATIVE (NEGATIVE); KETONE NEGATIVE (NEGATIVE); NITRITE NEGATIVE (NEGATIVE); PROTEIN NEGATIVE (NEGATIVE); SPECIFIC GRAVITY 1.005 (1.005-1.020); UROBILINOGEN NORMAL (NORMAL)
--- NOTE | 2018-12-09 01:30 | NUR ---
I have reviewed this patient and I concur with the Shift Assessment completed by the Licensed Practical Nurse today this shift.
[2018-12-09 03:55] VITALS: BP 123/89
[2018-12-09 04:40] LABS: BASOPHILS 0.3 % (0-2); EOSINOPHILS 1.4 % (0-7); HEMATOCRIT 38.8 % (36.0-48.0); HEMOGLOBIN 13.4 g/dL (12-16); IMMATURE GRANULOCYTES 0.1 % (0-5); LYMPHOCYTES 13.4 % (15-50); MCH 30.9 pg (26.0-34.0); MCHC 34.5 g/dL (31.0-37.0); MCV 89.4 fL (80.0-100.0); MEAN PLATELET VOLUME 11.1 fL (7.4-10.4); MONOCYTES 10.5 % (2-11); NEUTROPHILS 74.3 % (40-80); PLATELET COUNT 308 10x3/uL (130-400); RBC 4.34 10x6/uL (4.00-5.40); RDW 12.2 % (11.5-14.5)
[2018-12-09 04:59] LABS: ALBUMIN 2.8 g/dL (3.4-5.0); ALKALINE PHOSPHATASE 116 U/L (46-116); ALT (SGPT) 28 U/L (10-68); BILIRUBIN - TOTAL 1.22 mg/dL (0.2-1.3); CALC OSMOLALITY 267 mosm/kg (275-300); CALCIUM 8.4 mg/dL (8.5-10.1); CARBON DIOXIDE 28.1 mmol/L (21.0-32.0); CHLORIDE - SERUM 99 mmol/L (98-107); CREATININE - SERUM 0.7 mg/dL (0.6-1.3); GLUCOSE 115 mg/dL (74-106); MAGNESIUM - SERUM 1.9 mg/dL (1.8-2.4); POTASSIUM - SERUM 3.7 mmol/L (3.5-5.1); PROTEIN - SERUM 6.3 g/dL (6.4-8.2); SODIUM 135 mmol/L (136-145); eGFR NON AFRICAN AMERICAN 90 mL/min (90-120)
[2018-12-09 05:03] LABS: UREA NITROGEN 5 mg/dL (7-18)
--- NOTE | 2018-12-09 08:00 | NUR ---
RECIEVED BEDSIDE REPORT, AM ROUNDS COMPLETED. VSS, AAOX4. NO S/S OF RR DISTRESS. FAMILY AT BEDSIDE. AM MEDS GIVEN, PROVIDER ORDERED MIRALAX AND DOCUSATE FOR PT. INCISION TO RIGHT UPPER ABD QUADRANT, SITE APPEARS RED AND TENDER. PT STATES ITS HURTS WHENEVER SHE TRIES TO MOVE AROUND, BUT DENIES ANY NEED FOR PAIN. WILL CPOC. CL IN REACH, BED IN LOW, SR UP X2.
[2018-12-09 09:11] VITALS: BP 120/80
[2018-12-09 10:46] VITALS: BMI 38.0
[2018-12-09 12:15] VITALS: BP 131/87
--- NOTE | 2018-12-09 12:45 | NUR ---
PT CURRENLY RESTING IN BED, AT BEDSIDE. PT STATES IV LEAKING,. ASSESED THE SITE. IV FLUSHES GOOD. CHANGED DRESSING AROUND IV. PT CURRENLTY DENIES ANY NEEDS AT THIS TIME. CL IN REACH, BED IN LOW.
--- NOTE | 2018-12-09 14:00 | NUR ---
PT C/O OF FEELING SICK WHENEVER SHE TAKES METRONIDAZOLE, PT STATES SHE WOULD LIKE TO STOP TAKING IT BECAUSE SHE FEELS SHE MIGHT HAVE A MILD ALLERGIC REACTION TO THE MEDICATION. NOTIFIED DR FRAZIER. CLINDAMYCIN CURRENTLY INFUSING. WILL CTM.
[2018-12-09 15:01] VITALS: Ht 162.6 cm; Wt 101.4 kg
[2018-12-09 15:13] VITALS: BP 129/66
--- NOTE | 2018-12-09 16:35 | NUR ---
PT LEFT FLANK FEELS HARD TO TOUCH AND WARM. INCISION SITE ON ABDOMEN APPEARS RED AND TENDER. PT STATE SHE NOTIFIED DR FRAZIER AND IR NURSE ABOUT IT. PT STATES THE PAIN IS BETTER NOW, AND SHE WILL LET ME KNOW IF IT GETS WORSE. DENIES NEED FOR PAIN. CL IN REACH, BED IN LOW, SR UP X2.
--- NOTE | 2018-12-09 19:38 | NUR ---
INTRODUCED SELF TO PATIENT, PATIENT HAS SPOUSE AT BEDSIDE. RESP EVEN AND UNLABORED, NO NEEDS AT THIS TIME.
[2018-12-09 20:54] VITALS: BP 129/82
[2018-12-10 01:17] VITALS: BP 132/86
[2018-12-10 05:53] VITALS: BP 132/89
[2018-12-10 05:59] LABS: BASOPHILS 0.1 % (0-2); EOSINOPHILS 0.6 % (0-7); HEMATOCRIT 40.3 % (36.0-48.0); HEMOGLOBIN 13.8 g/dL (12-16); IMMATURE GRANULOCYTES 0.1 % (0-5); LYMPHOCYTES 12.4 % (15-50); MCH 30.6 pg (26.0-34.0); MCHC 34.2 g/dL (31.0-37.0); MCV 89.4 fL (80.0-100.0); MEAN PLATELET VOLUME 11.1 fL (7.4-10.4); MONOCYTES 8.4 % (2-11); NEUTROPHILS 78.4 % (40-80); RBC 4.51 10x6/uL (4.00-5.40); RDW 12.1 % (11.5-14.5); WBC 8.4 10x3/uL (4.8-10.8)
[2018-12-10 06:26] LABS: ALBUMIN 2.8 g/dL (3.4-5.0); ALKALINE PHOSPHATASE 106 U/L (46-116); ALT (SGPT) 22 U/L (10-68); BILIRUBIN - TOTAL 0.93 mg/dL (0.2-1.3); CALC OSMOLALITY 268 mosm/kg (275-300); CALCIUM 8.3 mg/dL (8.5-10.1); CARBON DIOXIDE 28.5 mmol/L (21.0-32.0); CHLORIDE - SERUM 97 mmol/L (98-107); CREATININE - SERUM 0.8 mg/dL (0.6-1.3); GLUCOSE 116 mg/dL (74-106); MAGNESIUM - SERUM 1.8 mg/dL (1.8-2.4); POTASSIUM - SERUM 3.6 mmol/L (3.5-5.1); PROTEIN - SERUM 6.2 g/dL (6.4-8.2); SODIUM 135 mmol/L (136-145); UREA NITROGEN 6 mg/dL (7-18); eGFR NON AFRICAN AMERICAN 77 mL/min (90-120)
[2018-12-10 06:28] LABS: PLATELET COUNT 370 10x3/uL (130-400)
--- NOTE | 2018-12-10 07:37 | NUR ---
PT LAYING IN BED RESTING AT THIS TIME. FAMILY AT BEDSIDE. PT DENIES PAIN AT THIS TIME. IV TO R AC SL, PATENT. NO REDNESS OR EMENA NOTED. ROOM AIR. A/O X 4. NO FURTHER CONCERNS AT THIS TIME. BED LOWERED AND LOCKED. CL IN REACH. WILL CPOC.
--- NOTE | 2018-12-10 09:17 | NUR ---
VITALS STABLE. PT TOOK MEDS WITHOUT DIFFICULTY.
[2018-12-10 10:04] VITALS: BP 143/80
[2018-12-10 13:15] LABS: EBV - EARLY ANTIGEN AB IGG <9.0 U/mL (0.0-8.9); EBV - NUCLEAR ANTIGEN AB IGG <18.0 U/mL (0.0-17.9); EBV VIRAL CAPSID AB IGG 73.5 U/mL (0.0-17.9); EBV VIRAL CAPSID AB IGM <36.0 U/mL (0.0-35.9)
--- NOTE | 2018-12-10 14:12 | NUR ---
I have reviewed this patient and I concur with the Shift Assessment completed by the Licensed Practical Nurse today this shift.
--- NOTE | 2018-12-10 15:41 | NUR ---
SUPP GIVEN. PT REQUESTED TO GIVE IT TO HERSELF. NO FUTHER CONCERNS.
[2018-12-10 16:09] LABS: ANA REFLEX - DIRECT Negative (Negative)
[2018-12-10 16:47] VITALS: BP 137/88
--- NOTE | 2018-12-10 17:49 | NUR ---
PT SIGNED CONSENTS FOR LIVER BIOPSY FOR 12/11. NO FURTHER CONCERNS AT THIS TIME
--- NOTE | 2018-12-10 19:11 | NUR ---
INTRODUCED SELF TO PATIENT, PATIENT HAS SPOUSE AT BEDSIDE STILL. PATIENT EXPRESSED CHANGING OF MEDS, PATIENT SEEMED CONCERNED ABOUT LIVER BIOPSY IN THE AM.
[2018-12-10 20:35] VITALS: BP 131/80
--- NOTE | 2018-12-10 21:09 | NUR ---
IV RESITED TO R WRIST, 20 GAUGE SL, FLUSHES AND PATENT.
[2018-12-11] VITALS (11 sets, daily range): BP systolic 109–153; BP diastolic 70–91
--- NOTE | 2018-12-11 01:40 | NUR ---
PATIENT SPOUSE COME TO GET THIS NURSE TO TALK WITH HER ABOUT LIVER BIOPSY. PATIENT FEELS UNEASY TO HAVE BIOPSY DONE AFTER DISCUSSING WITH DR. ZARAGOZA. ADVISED THAT ULTIMATELY THE DECISION WAS UP TO HER. SHE STATED SHE WOULD LIKE TO THINK ON IT AND MAKE A DECISION IN THE MORNING.
[2018-12-11 06:50] LABS: ALBUMIN 2.7 g/dL (3.4-5.0); ALKALINE PHOSPHATASE 100 U/L (46-116); ALT (SGPT) 17 U/L (10-68); BILIRUBIN - TOTAL 0.85 mg/dL (0.2-1.3); CALC OSMOLALITY 272 mosm/kg (275-300); CALCIUM 8.4 mg/dL (8.5-10.1); CARBON DIOXIDE 29.4 mmol/L (21.0-32.0); CHLORIDE - SERUM 99 mmol/L (98-107); CREATININE - SERUM 0.6 mg/dL (0.6-1.3); GLUCOSE 118 mg/dL (74-106); MAGNESIUM - SERUM 1.8 mg/dL (1.8-2.4); POTASSIUM - SERUM 3.2 mmol/L (3.5-5.1); PROTEIN - SERUM 6.1 g/dL (6.4-8.2); SODIUM 137 mmol/L (136-145); UREA NITROGEN 6 mg/dL (7-18); eGFR NON AFRICAN AMERICAN > 90 mL/min (90-120)
[2018-12-11 07:15] LABS: APTT 34.9 SECONDS (22.8-39.4); INR 1.12 (0.85-1.17); PROTIME 13.9 SECONDS (11.6-15.0)
[2018-12-11 07:45] LABS: BASOPHILS 0.1 % (0-2); EOSINOPHILS 1.7 % (0-7); HEMATOCRIT 39.2 % (36.0-48.0); HEMOGLOBIN 13.3 g/dL (12-16); IMMATURE GRANULOCYTES 0.3 % (0-5); LYMPHOCYTES 13.4 % (15-50); MCH 30.4 pg (26.0-34.0); MCHC 33.9 g/dL (31.0-37.0); MCV 89.5 fL (80.0-100.0); MEAN PLATELET VOLUME 11.6 fL (7.4-10.4); MONOCYTES 8.9 % (2-11); NEUTROPHILS 75.6 % (40-80); PLATELET COUNT 364 10x3/uL (130-400); RBC 4.38 10x6/uL (4.00-5.40); RDW 12.2 % (11.5-14.5); WBC 7.6 10x3/uL (4.8-10.8)
--- NOTE | 2018-12-11 08:50 | NUR ---
[place], PROTONIX AND DOXY GIVEN TO PT AT THIS TIME. PT A/O X4, ONLY WANTED TO TAKE [place] PO NOT OTHERS MEDICATIONS, SINCE SHE IS NPO FOR PROCEDURE. RESP EVEN AND NONLABORED ON RA. RT WRIST INFUISNG DOXY IVPB AT 75CC/HR. PT DENIES ANY NEEDS AT THIS TIME. MASTER HEARTH TECHNICIAN AT BEDSIDE. ALSO AT BEDSIDE, NAD NOTED,W ILL CONTINEU PLAN OF CARE.
--- NOTE | 2018-12-11 11:22 | NUR ---
PT TRANSFERED TO SPECIALS AT THIS TIME. VIA BED, SHIRA NOTED.
--- NOTE | 2018-12-11 13:20 | NUR ---
RECEIVED PT BACK TO ROOM 2108. VITAL SIGNS STABLE, PLACED PT ON FREQUENT VITAL SIGNS. 4X4 WITH TEGADERM DRESSING TO RT JUGULAR, CDI. PT DENIES ANY NEEDS AT THIS TIME. FAMILY AT BEDSIDE, NAD NOTED, WILL CONTINUE TO MONITOR.
[2018-12-11 16:37] LABS: HEMATOCRIT 38.5 % (36.0-48.0); HEMOGLOBIN 13.1 g/dL (12-16)
--- NOTE | 2018-12-11 16:58 | NUR ---
HELPED PT TO BATHROOM AND BACK TO BED, X2 ASSIST AT THIS TIME. PT REFUSED TO TAKE HER GAS MEDICATIONS. PT DENIES ANY OTHER NEEDS AT THIS TIME. CALL LIGHT IN REACH.
--- NOTE | 2018-12-11 18:13 | NUR ---
PT REQUESTED FOR HER DOXY TO BE GIVEN NOW, EXPLAINED THAT IF SHE TAKES IT LATER ON EMPTY STOMACH, IT WILL MAKE HER SICK TO HER STOMACH. ALSO GAVE 40MEQ OF K FOR LOW K OF 3.2. PT DENIES ANY OTHER NEEDS AT THIS TIME. AT BEDSIDE, CALL LIGHT IN REACH.
[2018-12-11 18:59] LABS: HEMATOCRIT 37.1 % (36.0-48.0); HEMOGLOBIN 12.6 g/dL (12-16)
--- NOTE | 2018-12-11 19:55 | NUR ---
PT RESTING IN BED. ALERT AND ORIENTED. NO SIGNS OF DISTRESS. BREATHING EVEN AND UNLABORED. PT STATES NO PROBLEMS AT THIS TIME. NO IV PT REFUSES. BOWEL SOUNDS ACTIVE. RT LOWER ABD REDDNESS PRESENT. PT STATES IT IS LOOKING BETTER THAN IT WAS. DRESSING RT SIDE OF NECK CLEAN DRY AND INTACT. NO LOWER LEG SWELLING PRESENT. AT BEDSIDE. WILL CONTINUE PLAN OF CARE. CALL LIGHT IN REACH. BED LOWERED AND LOCKED. BED RAILS UP X1.
--- NOTE | 2018-12-12 04:25 | NUR ---
I have reviewed this patient and I concur with the Shift Assessment completed by the Licensed Practical Nurse today this shift.
[2018-12-12 06:03] LABS: BASOPHILS 0.3 % (0-2); EOSINOPHILS 2.4 % (0-7); HEMATOCRIT 38.7 % (36.0-48.0); HEMOGLOBIN 13.1 g/dL (12-16); IMMATURE GRANULOCYTES 0.2 % (0-5); LYMPHOCYTES 13.4 % (15-50); MCH 30.3 pg (26.0-34.0); MCHC 33.9 g/dL (31.0-37.0); MCV 89.6 fL (80.0-100.0); MEAN PLATELET VOLUME 11.1 fL (7.4-10.4); MONOCYTES 8.8 % (2-11); NEUTROPHILS 74.9 % (40-80); PLATELET COUNT 379 10x3/uL (130-400); RBC 4.32 10x6/uL (4.00-5.40); RDW 12.2 % (11.5-14.5); WBC 5.8 10x3/uL (4.8-10.8)
[2018-12-12 06:06] VITALS: BP 122/83
[2018-12-12 06:37] LABS: ALBUMIN 2.6 g/dL (3.4-5.0); ALKALINE PHOSPHATASE 497 U/L (46-116); BILIRUBIN - TOTAL 1.34 mg/dL (0.2-1.3); CALCIUM 8.4 mg/dL (8.5-10.1); CARBON DIOXIDE 31.4 mmol/L (21.0-32.0); CHLORIDE - SERUM 99 mmol/L (98-107); CREATININE - SERUM 0.7 mg/dL (0.6-1.3); GLUCOSE 114 mg/dL (74-106); MAGNESIUM - SERUM 1.9 mg/dL (1.8-2.4); PROTEIN - SERUM 6.1 g/dL (6.4-8.2); SODIUM 137 mmol/L (136-145); eGFR NON AFRICAN AMERICAN 90 mL/min (90-120)
[2018-12-12 06:45] LABS: ALT (SGPT) 345 U/L (10-68); CALC OSMOLALITY 273 mosm/kg (275-300); POTASSIUM - SERUM 3.7 mmol/L (3.5-5.1); UREA NITROGEN 9 mg/dL (7-18)
--- NOTE | 2018-12-12 07:30 | NUR ---
A/A/OX4. DENIES ANY PAIN, DISCOMFORT OR SOB. NO REQUESTS VOICED. ASSESSMENT COMPLETED. BED IN LOW LOCKED POSITION WITH SIDERAILS UP X2 AND CALL LIGHT IN REACH. STATES SHE HOPES TO BE DISCHARGED TODAY.
[2018-12-12 09:06] VITALS: BP 129/84
[2018-12-12] MEDS ORDERED: COLACE100 MG PO (10:50)
[2018-12-12] MEDS ORDERED: VIBRAMYCIN 100100 MG PO (10:50)
[2018-12-12] MEDS ORDERED: MIRALAX17 GM PO (10:51)
--- NOTE | 2018-12-12 13:00 | NUR ---
DISCHARGE INSTURCTIONS REVIEWED WITH PT AND VERBALIZED UNDERSTANDING BUT STATES SHE WAS TOLD SHE WOULD NEED NO FURTHER ANTIBIOTICS. ENCOURAGED HER TO GET THEM FILLED AND TAKE DIRECTED. STATED SHE IS NOT GOING TO TAKE THEM. NO SL TO REMOVE. WAS TAKEN DOWNSTAIRS VIA W/C WITH ALL PERSONAL BELONGINGS AND LEFT FACILITY VIA PRIVATE VEHICLE WITH HER .
--- NOTE | 2018-12-12 16:45 | MORECARE ---
CASE MANAGEMENT DISCHARGE SUMMARY PATIENT: MIQUEL REES UNIT: [id number] ADM DATE: 12/07/18 AGE: 63 : 57 SEX: F ROOM/BED: D.8596 AUTHOR: NATY,DOC PHYSICIAN: REFERRING PHYSICIAN: ITZEL KENNEY MD DATE OF SERVICE: 12/12/18 Discharge Plan Patient Name: MIQUEL REES Facility: [facility]:[place] : 1955 Planned Disposition: Home Anticipated Discharge Date: 12/12/18 Discharge Date: 12/12/2018 Expected LOS: 5 Initial Reviewer: [email or web address] Initial Review Date: 12/12/2018 Generated: 12/12/18 5:45 pm Comments DCP- Discharge Planning Updated by [email or web address]: Sam Perez on 12/12/18 3:[address] Patient Name: MIQUEL REES Admission Status: ER Accout number: [id number] Admission Date: 12-07-2018 : 1955 Admission Diagnosis:CELLULITIS OF ABDOMINAL WALL Attending: ITZEL KENNEY Current LOS: 5 Anticipated DC Date: 12-12-2018 Planned Disposition: Home Primary Insurance: [employer] EXCHANGE Discharge Planning Comments: CM MET WITH PT AND SPOUSE IN ROOM TO DISCUSS DISCHARGE PLANNING AND NEEDS. MIQUEL REES provided verbal consent to discuss current and ongoing needs with/in the presence of: SPOUSE, FRANCISCO. PT REPORTS LIVING AT HOME INDEPENDENTLY WITH HER SPOUSE. PT HAS CANE AND SHOWER CHAIR, SHE IS NOT USING EITHER ONE. PT HAS NO MEDICAL EQUIPMENT PROVIDER PREFERNECE. PT HAS NO OUTSIDE SERVICES ASSISTING IN THE HOME. CM DISCUSSED AVAILABILITY OF HOME HEALTH, REHAB SERVICES AND MEDICAL EQUIPMENT. PT DENIES DISCHARGE NEEDS, REPORTS HER SPOUSE IS HERE TO PICK HER UP FOR DISCHARGE HOME TODAY. CLAIMS SERVICE REPRESENTATIVE NURSE NOTIFIED. Merchandise Adjustment Clerk: Sam Perez DCPIA - Discharge Planning Initial Assessment Updated by [email or web address]: Sam Perez on 12/12/18 4:42 pm * Is the patient Alert and Oriented? Yes * How many steps to enter\exit or inside your home? * PCP DR. JENNIFER LIZAMA IN [place] * Pharmacy [facility] [place] * Preadmission Environment Home with Family * ADLs Independent * Equipment Cane Shower Chair * Other Equipment NO MEDICAL EQUIPMENT PROVIDER PREFERENCE * List name and contact numbers for known caregivers / representatives who currently or will assist patient after discharge: FRANCISCO REES, SPOUSE, * Verbal permission to speak to the caregivers and representatives has been obtained from the patient. N/A * Community resources currently utilized None * Please name any agencies selected above. NONE * Additional services required to return to the preadmission environment? No * Can the patient safely return to the preadmission environment? Yes * Has this patient been hospitalized within the prior 30 days at any hospital? No Patient Name: MIQUEL REES Page [phone] at 1645 All edits/amendments must be made on the electronic document DICTATION DATE: 12/12/181644 PAPER PRODUCTS SUPERVISOR: TAMMY 12/12/181644 RPT#: [id number] DC DATE:12/12/18 STATUS: DIS IN [facility] [address] [place] [address] END OF REPORT
--- NOTE | 2018-12-12 17:01 | MORECARE ---
CASE MANAGEMENT DISCHARGE SUMMARY PATIENT: MIQUEL REES UNIT: [id number] ADM DATE: 12/07/18 AGE: 63 : 57 SEX: F ROOM/BED: D.8113 AUTHOR: NATY,DOC PHYSICIAN: REFERRING PHYSICIAN: ITZEL KENNEY MD DATE OF SERVICE: 12/12/18 Discharge Plan Patient Name: MIQUEL REES Facility: [facility]:[place] : 1955 Planned Disposition: Home Anticipated Discharge Date: 12/12/18 Discharge Date: 12/12/2018 Expected LOS: 5 Initial Reviewer: [email or web address] Initial Review Date: 12/12/2018 Generated: 12/12/18 6:00 pm Comments DCP- Discharge Planning Updated by [email or web address]: Sam Perez on 12/12/18 3:[address] Patient Name: MIQUEL REES Admission Status: ER Accout number: [id number] Admission Date: 12-07-2018 : 1955 Admission Diagnosis:CELLULITIS OF ABDOMINAL WALL Attending: ITZEL KENNEY Current LOS: 5 Anticipated DC Date: 12-12-2018 Planned Disposition: Home Primary Insurance: [employer] EXCHANGE Discharge Planning Comments: CM MET WITH PT AND SPOUSE IN ROOM TO DISCUSS DISCHARGE PLANNING AND NEEDS. MIQUEL REES provided verbal consent to discuss current and ongoing needs with/in the presence of: SPOUSE, FRANCISCO. PT REPORTS LIVING AT HOME INDEPENDENTLY WITH HER SPOUSE. PT HAS CANE AND SHOWER CHAIR, SHE IS NOT USING EITHER ONE. PT HAS NO MEDICAL EQUIPMENT PROVIDER PREFERNECE. PT HAS NO OUTSIDE SERVICES ASSISTING IN THE HOME. CM DISCUSSED AVAILABILITY OF HOME HEALTH, REHAB SERVICES AND MEDICAL EQUIPMENT. PT DENIES DISCHARGE NEEDS, REPORTS HER SPOUSE IS HERE TO PICK HER UP FOR DISCHARGE HOME TODAY. COMMERCIAL LAWN SPECIALIST NURSE NOTIFIED. Rehab Therapy Manager: Sam Perez DCPIA - Discharge Planning Initial Assessment Updated by [email or web address]: Sam Perez on 12/12/18 4:42 pm * Is the patient Alert and Oriented? Yes * How many steps to enter\exit or inside your home? * PCP DR. JENNIFER LIZAMA IN [place] * Pharmacy [facility] IN [place] * Preadmission Environment Home with Family * ADLs Independent * Equipment Cane Shower Chair * Other Equipment NO MEDICAL EQUIPMENT PROVIDER PREFERENCE * List name and contact numbers for known caregivers / representatives who currently or will assist patient after discharge: FRANCISCO REES, SPOUSE, * Verbal permission to speak to the caregivers and representatives has been obtained from the patient. N/A * Community resources currently utilized None * Please name any agencies selected above. NONE * Additional services required to return to the preadmission environment? No * Can the patient safely return to the preadmission environment? Yes * Has this patient been hospitalized within the prior 30 days at any hospital? No Last DP export: 12/12/18 3:45 p Patient Name: MIQUEL REES Page [id number] at 1701 All edits/amendments must be made on the electronic document DICTATION DATE: 12/12/181699 EDUCATIONAL RECRUITER: TAMMY 12/12/181699 RPT#: [id number] DC DATE:12/12/18 STATUS: DIS IN [facility] [address] [place] [address] END OF REPORT
[2018-12-13 17:09] LABS: MITOCHONDRIAL ANTIBODY <20.0 Units (0.0-20.0); SMOOTH MUSCLE ABS (ACTIN) 13 Units (0-19)
== END 2018-12-12 13:00 | disposition home or self-care (01) | DRG 433 ==
LOC: D.ER 20:26 → D.M2 21:27
PROVIDERS: Emergency Medicine; Family Medicine; Internal Medicine Gastroenterology; Internal Medicine Nephrology; Radiology Vascular & Interventional Radiology; ADMIT Emergency Medicine; ATTEND Emergency Medicine
PROC: 0FB13ZX Excision of Right Lobe Liver, Percutaneous Approach, Diagnostic (ICD-10-PCS; principal; 2018-12-11)
DX: K74.60 Unspecified cirrhosis of liver (principal); L03.311 Cellulitis of abdominal wall; R18.8 Other ascites; K57.92 Diverticulitis of intestine, part unspecified, without perforation or abscess without bleeding; D64.9 Anemia, unspecified; I10 Essential (primary) hypertension

== ENCOUNTER → 2018-12-31 10:01 | Outpatient (CLI) | payer BC ==
[~2018-12-31 10:01] MED LIST changes: +CARAFATE1 G; +COLACE100 MG PO; +GLYCERIN A1 SUPP.REC RC; +LASIX40 MG PO; +MIRALAX17 GM PO; +VIBRAMYCIN 100100 MG PO
[2018-12-31 11:29] LABS: ANION GAP 12.3 mmol/L (8-16); BILIRUBIN - TOTAL 0.94 mg/dL (0.2-1.3); CALCIUM 9.2 mg/dL (8.5-10.1); CARBON DIOXIDE 29.4 mmol/L (21.0-32.0); CREATININE - SERUM 1.1 mg/dL (0.6-1.3); POTASSIUM - SERUM 3.7 mmol/L (3.5-5.1); PROTEIN - SERUM 7.5 g/dL (6.4-8.2)
== END | disposition home or self-care (01) ==
LOC: D.LAB 10:01
PROVIDERS: Internal Medicine Gastroenterology
DX: R18.8 Other ascites (principal)

== ENCOUNTER 2019-01-09 06:33 | Outpatient (CLI) | payer BC ==
[~2019-01-09] VITALS: Ht 162.6 cm; Wt 100.0 kg
[~2019-01-09 06:33] MED LIST changes: -CARAFATE1 G; -GLYCERIN A1 SUPP.REC RC; -LASIX40 MG PO
[2019-01-09 07:09] LABS: ALBUMIN 3.3 g/dL (3.4-5.0); ANION GAP 11.7 mmol/L (8-16); BILIRUBIN - TOTAL 1.24 mg/dL (0.2-1.3); CALCIUM 9.9 mg/dL (8.5-10.1); CARBON DIOXIDE 29.8 mmol/L (21.0-32.0); CREATININE - SERUM 1.2 mg/dL (0.6-1.3); POTASSIUM - SERUM 4.5 mmol/L (3.5-5.1); PROTEIN - SERUM 7.8 g/dL (6.4-8.2)
[2019-01-09 07:13] LABS: BASOPHILS 0.3 % (0-2); EOSINOPHILS 0.5 % (0-7); HEMATOCRIT 45.1 % (36.0-48.0); HEMOGLOBIN 15.7 g/dL (12-16); IMMATURE GRANULOCYTES 0.3 % (0-5); LYMPHOCYTES 13.7 % (15-50); MCH 30.4 pg (26.0-34.0); MCHC 34.8 g/dL (31.0-37.0); MCV 87.4 fL (80.0-100.0); MEAN PLATELET VOLUME 10.3 fL (7.4-10.4); MONOCYTES 8.2 % (2-11); RBC 5.16 10x6/uL (4.00-5.40); RDW 12.4 % (11.5-14.5); WBC 10.3 10x3/uL (4.8-10.8)
[2019-01-09 07:20] LABS: PLATELET COUNT 481 10x3/uL (130-400)
[2019-01-09 07:21] LABS: INR 1.03 (0.85-1.17)
[2019-01-09 07:22] LABS: APTT 28.8 SECONDS (22.8-39.4)
[2019-01-09] MEDS ORDERED: LASIX40 MG PO (07:45)
[2019-01-09] MEDS ORDERED: MAALOX ADVANCE355 ML PO (07:47)
[2019-01-09] MEDS ORDERED: GLYCERIN A1 SUPP.REC RC (07:48)
[2019-01-09 08:02] VITALS: BP 128/100; Ht 162.6 cm; Wt 100.0 kg
--- NOTE | 2019-01-09 10:31 | NUR ---
1010 VS DOCUMENTED ON POST PROCEDURE FORM.
--- NOTE | 2019-01-09 11:20 | NUR ---
DISCHARGE INSTRUCTIONS REVIEWED WITH PATIENT AND SPOUSE, PATIENT DISCHARGED HOME VIA WHEELCHAIR TO PRIVATE VEHICLE WITH SPOUSE
[2019-01-09 13:17] LABS: PROTEIN - BODY FLUID 4.8 G/DL
[2019-01-09 15:12] LABS: NEUT - BF 6 %
[2019-01-09 15:14] LABS: MACROPHAGES BF 40 %
== END 2019-01-09 11:20 | disposition home or self-care (01) ==
LOC: D.SP 06:33
PROVIDERS: Radiology Diagnostic Radiology; ATTEND Internal Medicine Gastroenterology
DX: R18.8 Other ascites (principal)

== ENCOUNTER 2019-01-31 08:42 | Outpatient (CLI) | payer BC ==
--- NOTE | ~2019-01-31 | HEMODYNAMI ---
PATIENT:MIQUEL REES MEDICAL RECORD: [id number] : 57 LOCATION:[facility] ADMISSION DATE: 01/31/19 Generatedon:01/31/201912:28 Patient name: MIQUEL REES Patient #: [id number] SSN: : 1955 Date of study: 01/31/2019 Page: Of Hemodynamic Procedure Report Patient Data Patient Demographics Procedure consent was obtained First Name: MIQUEL Gender: Female Last Name: CABRERA : 1955 [facility] Initial: SEYMOUR Age: 63 year(s) Patient #: [id number] Race: Unknown Additional ID: [id number] Contact details [address]: [address] [place] [address] State: [place] City: [place] Zip code: [address] Past Medical History Allergies Allergen Reaction Date Comments Reported Other allergy 12/11/2018 PCN Admission Admission Data Admission Date: 01/31/2019 Admission Time: 8:42 Procedure Procedure Types Cath Procedure Peripheral Cath Diagnostic Procedure Miscellaneous Pleurex Pleurex Cath Place w/ Imaging Procedure Description Procedure Date Procedure Date: 01/31/2019 Procedure Start Time: 11:45 Procedure Staff Name Function Benigno Quezada MD Performing Physician Chase Minaya RT Monitor NAM COLON RT Scrub Alice Fernandez RN Nurse Cydney Dotson RN Nurse Procedure Data Cath Procedure Fluoroscopy Diagnostic fluoroscopy Total fluoroscopy Time: 0.6 time: 0.6 min min Diagnostic fluoroscopy Total fluoroscopy dose: 8 dose: 8 mGy mGy Procedure Medications Medication Administration Route Dosage Heparin Flush Bag added to field 1 bags (1000units/500ml NS) Lidocaine 1% added to field 20 Fentanyl I.V. 50 mcg Versed I.V. 1 mg Fentanyl I.V. 50 mcg Versed I.V. 1 mg Hemodynamics Rest Heart Rate: 98 (bpm) Snapshots Pre Cath Intra NCS Post Cath Vital Signs Time Heart Resp SPO2 etCO2 NIBP (mmHg) Rhythm Pain Sedation Rate (ipm) (%) (mmHg) Status Level (bpm) 11:27:32 100 10 100 19.4 134/94(117) NSR 0 (11) 10(A) , No pain 11:31:39 105 22 100 16.4 136/100(127) NSR 0 (11) 10(A) , No pain 11:35:51 98 15 100 22.4 124/89(111) NSR 0 (11) 9(A) , No pain 11:40:50 101 23 100 16.4 152/82(109) NSR 0 (11) 9(A) , No pain 11:45:04 103 17 100 18.7 136/91(117) NSR 0 (11) 9(A) , No pain 11:49:16 101 23 100 14.9 127/86(109) NSR 0 (11) 8(A) , No pain 11:52:37 99 12 98 10.5 111/73(87) NSR 0 (11) 10(A) , No pain 11:56:39 97 11 98 8.9 122/89(102) NSR 0 (11) 10(A) , No pain 12:00:42 100 13 99 18.7 138/91(107) NSR 0 (11) 10(A) , No pain 12:04:52 105 17 99 20.9 141/96(108) NSR 0 (11) 10(A) , No pain 12:09:02 108 18 99 17.9 138/99(117) NSR 0 (11) 10(A) , No pain 12:13:12 103 16 99 21.7 132/93(113) NSR 0 (11) 10(A) , No pain 12:17:20 100 13 99 20.9 139/92(106) NSR 0 (11) 10(A) , No pain 12:21:32 100 16 99 21.7 124/88(105) NSR 0 (11) 10(A) , No pain 12:25:39 98 16 99 26.9 123/79(103) NSR 0 (11) 10(A) , No pain Medications Time Medication Route Dose Verified Delivered Reason Notes Effec tiveness by by 11:31:33 Heparin Flush added 1 Benigno Pelaez used for Bag to bags Damien Quezada procedure (1000units/500ml field MD BEVERLY NS) 11:31:50 Lidocaine 1% added 20ml Benigno Pelaez used for to vial Damien Damien procedure field MD BEVERLY 11:46:42 Fentanyl I.V. 50 Benigno Lamas for mcg Damien Dotson RN sedation 11:46:56 Versed I.V. 1 mg Bneigno Lamas for Damien Dotson RN sedation 11:51:05 Fentanyl I.V. 50 Benigno Lamas for [facility] Damien Dotson RN sedation 11:51:15 Versed I.V. 1 mg Benigno Lamas for Damien Dotson RN sedation Procedure Log Time Note 11:17:34 Alice Fernandez RN sent for patient. Start room use. 11:17:42 Time tracking: Regular hours (M-F 7:00 - 5:00) 11:17:50 Plan of Care:Hemodynamics will remain stable., Cardiac rhythm will remain stable., Comfort level will be maintained., Respiratory function will remain adequate., Patient/ family verbilizes understanding of procedure., Procedure tolerated without complication., Recovers from procedure without complications.. 11:17:56 Patient received from Outpatients to IR Alert and oriented. Tansferred to table in Supine position. 11:17:56 Correct patient and procedure confirmed by team. 11:17:57 ECG and BP/O2 sat monitors applied to patient. 11:17:59 Signed procedure consent form obtained from patient. 11:18:01 Full Disclosure recording started 11:18:03 - 11:18:07 H&P Date Dictated: 01/31/2019 H&P Addendum completed by physician on day of procedure. (MUST COMPLETE FOR ALL OUTPATIENTS). 11:18:08 Pre-procedure instructions explained to patient. 11:18:08 Pre-op teaching completed and patient verbalized understanding. 11:18:12 Use device set IR Diagnostic 11:18:13 Bag Decanter (2002S) opened to sterile field. 11:18:13 Sterile Angiographic Pack opened to sterile field. 11:18:14 Tegaderm 4 x 4 (1626W) opened to sterile field. 11:18:54 Family in waiting room. 11:18:57 Patient NPO since Midnight. 11:20:24 Is the patient allergic to Iodine/contrast media? No. ::26 Is patient on blood thinner?No 11:20:27 Patient diabetic? No. 11:20:28 - 11:20:29 ----Pre-sedation anethsthesia assessment.---- 11:20:31 Previous problem with sedation/anesthesia? No ? 11:20:32 Snore? Yes 11:20:33 Sleep apnea? No 11:20:35 Deviated septum? No 11:20:37 Opens mouth fully? Yes 11:20:38 Sticks out tongue? Yes 11:20:42 Airway obstruction? No ? 11:20:45 Dentures? No ? 11:25:59 IV patent on arrival in right hand with 0.45%NaCl at [facility]. 11:26:04 Sharps counted by scrub and verified by R.N. 11:26:05 Alarms reviewed by R. N. 11:26:11 Right Abdomen was prepped with chlora-prep and draped in sterile fashion. 11:26:17 Vital chart was started 11::18 Baseline sample Acquired. 11:31:33 Heparin Flush Bag (1000units/500ml NS) 1 bags added to field was administered by Benigno Quezada MD; used for procedure; 11::39 Baseline sample Acquired. 11::50 Lidocaine 1% 20ml vial added to field was administered by Benigno christensen MD; used for procedure; 11::24 Physician arrived 11:42:25 --------ALL STOP TIME OUT------ 11:26 Final Timeout: patient, procedure, and site verified with staff and physician. All members of the team are in agreement. 11:42:32 Right abdomen site verified by team. 11:42:41 Maximum allowable Isovue 300 dose 300ml. Physician notified. (300ml for normal creatinines. For patients with creatinine of 1.7 or higher multiply weight(kg) x 5 divided by creatinine.) 11:42:48 Fire Safety Assessment: A--An alcohol-based skin anteseptic being used preoperatively., C--Open oxygen or nitrous oxide is being used. 11:42:52 Sedation plan: IV Moderate Sedation Medication:Versed, Fentanyl 11:45:02 Procedure started. 11:45:09 Local anesthetic to Abdominal area with Lidocaine 1% by Benigno Quezada MD.INITIAL ACCESS ONLY 11:45:12 PLEURX PERITON drainage catheter ([id number]) opened to sterile field. 11:46:42 Fentanyl 50 mcg I.V. was administered by Cydney Dotson RN; for sedation ; 11:46:56 Versed 1 mg I.V. was administered by Cydney Dotson RN; for sedation; 11:51:05 Fentanyl 50 mcg I.V. was administered by Cydney Dotson RN; for sedation ; 11:51:15 Versed 1 mg I.V. was administered by Cydney Dotson RN; for sedation; 12:02:11 Dermabond Pen opened to sterile field. 12:18:46 Procedure ended.(Physican Out) 12:19:39 Fluoroscopy time 00.60 minutes. 12:19:43 Fluoroscopy dose: 8 mGy 12:19:43 Flurop Dose total: 8 12:19:53 Sharps counted by scrub and verified by R.N. 12:21:22 Insertion/operative site no bleeding no hematoma. 12:21:26 Post-op/insertion site Right Abdominal area dressed using a 4 x 4 and Tegaderm. 12:21:34 Post Abdominal area:stable 12:21:39 Post procedure instruction explained to patient.Patient verbalizes understanding. 12:27:57 Report given to Outpatients. 12:28:12 Patient transfered to Outpatients with Bed. 12:28:39 Vital chart was stopped Device Usage Item Name Manufacture Quantity Catalog Hospital Part Current Minimal Lot# / Number Charge Number Stock Stock Serial# Code Bag Decanter Microtek 1 [id number] 5 () Medical Inc. Sterile Cardinal 1 [id number] 5 Angiographic Health Pack Tegaderm 4 x 3M 1 [id number] 5 4 (1626W) PLEURX CareFusion 1 [id number] PERITON drainage catheter ([id number]) Dermabond Cardinal 1 [id number] 5 [facility] Signature Audit [place] Stage Time Signature Unsigned Intra-Procedure 01/31/2019 Chase 12:28:35 PM Marimar RT (R) (CV) Signatures Monitor : Chase Signature : Marimar RT Date : Time : [address] [address]
[~2019-01-31 08:42] MED LIST changes: +GLYCERIN A1 SUPP.REC RC; +LASIX40 MG PO
[2019-01-31 09:13] LABS: BASOPHILS 0.1 % (0-2); EOSINOPHILS 0.7 % (0-7); HEMATOCRIT 42.5 % (36.0-48.0); HEMOGLOBIN 14.7 g/dL (12-16); IMMATURE GRANULOCYTES 0.1 % (0-5); MCH 30.8 pg (26.0-34.0); MCHC 34.6 g/dL (31.0-37.0); MCV 88.9 fL (80.0-100.0); MEAN PLATELET VOLUME 9.9 fL (7.4-10.4); NEUTROPHILS 74.1 % (40-80); PLATELET COUNT 338 10x3/uL (130-400); RBC 4.78 10x6/uL (4.00-5.40); RDW 13.6 % (11.5-14.5); WBC 7.5 10x3/uL (4.8-10.8)
[2019-01-31 09:34] LABS: ANION GAP 12.4 mmol/L (8-16); CALCIUM 9.7 mg/dL (8.5-10.1); CARBON DIOXIDE 26.3 mmol/L (21.0-32.0); CREATININE - SERUM 0.9 mg/dL (0.6-1.3); POTASSIUM - SERUM 4.7 mmol/L (3.5-5.1)
[2019-01-31 09:50] LABS: APTT 27.1 SECONDS (22.8-39.4); INR 1.06 (0.85-1.17); PROTIME 13.3 SECONDS (11.6-15.0)
[2019-01-31 10:59] VITALS: BP 113/91; BMI 34.4
[2019-01-31] MEDS ORDERED: CARAFATE1 G (11:04)
--- NOTE | 2019-01-31 14:25 | NUR ---
RIGHT HAND PIV DC'D WITH TIP INTACT. DISCHARGE INSTRUCTIONS REVIEWED WITH PATIENT AND SPOUSE. PATIENT DRESSING IN PERSONAL CLOTHING
== END 2019-01-31 14:30 | disposition home or self-care (01) ==
LOC: D.SP 08:42 → D.CT 11:00 → D.SP 14:30
PROVIDERS: Radiology Diagnostic Radiology; ATTEND Internal Medicine Hematology & Oncology
DX: R18.8 Other ascites (principal); C56.9 Malignant neoplasm of unspecified ovary; Z01.812 Encounter for preprocedural laboratory examination

== ENCOUNTER 2019-06-30 10:21 | Outpatient (CLI) | payer BC ==
--- NOTE | 2019-06-27 12:48 | NUR ---
CALLED PT INSTRUCTIONS GIVEN FOR SUNDAY PROCEDURE. IMAGINING AT [facility] BUT CAN NOT OBTAIN BY SUNDAY. NPO AFTER SUNDAY NIGHT NO THINNERS. PT WILL HAVE A RING STRIKER. CHECKIN 1030.
[~2019-06-30] VITALS: Ht 162.6 cm; Wt 909.1 kg
--- NOTE | ~2019-06-30 | HEMODYNAMI ---
PATIENT:MIQUEL REES MEDICAL RECORD: [id number] : 57 [id number] ADMISSION DATE: 06/30/19 Generatedon:06/30/201914:27 Patient name: MIQUEL REES Patient #: [id number] SSN: : 1955 Date of study: 06/30/2019 Page: Of Hemodynamic Procedure Report Patient Data Patient Demographics Procedure consent was obtained First Name: MIQUEL Gender: Female Last Name: CABRERA : 1955 [facility] Initial: SEYMOUR Age: 64 year(s) Patient #: [id number] Race: Unknown Additional ID: [id number] Contact details [address]: [address] [place] [address] State: [place] City: [place] Zip code: [address] Past Medical History Allergies Allergen Reaction Date Comments Reported Other allergy 12/11/2018 PCN Codeine 06/30/2019 Toradol 06/30/2019 Other allergy 06/30/2019 FLAGYL Admission Admission Data Admission Date: 06/30/2019 Admission Time: 10:21 Height (in.): 64 BSA: 1.96 (m2) Height (cm.): 162.56 BMI: 34.33 (kg/m2) Weight (lbs.): 200 Weight (kg.): 90.72 Procedure Procedure Types Cath Procedure Peripheral Cath Diagnostic Procedure Sqe Peripheral Procedures Miscellaneous Pleurex Remove Pleurex Peritoneal Procedure Description Procedure Date Procedure Date: 06/30/2019 Procedure Start Time: 14:00 Procedure Staff Name Function Benigno Quezada MD Performing Physician Cecilia Andres RT Firebrick Layer Chase Minaya RT Scrub Cydney Dotson RN Nurse Procedure Data Cath Procedure Fluoroscopy Diagnostic fluoroscopy Total fluoroscopy Time: 0.2 time: 0.2 min min Diagnostic fluoroscopy Total fluoroscopy dose: 8 dose: 8 mGy mGy Contrast Material Contrast Material Type Amount (ml) Isovue 300 0 Procedure Medications Medication Administration Route Dosage Heparin Flush Bag added to field 1 bags (1000units/500ml NS) Lidocaine 1% added to field 20 Fentanyl I.V. 50 mcg Versed I.V. 1 mg Fentanyl I.V. 50 mcg Versed I.V. 1 mg Fentanyl I.V. 50 mcg Versed I.V. 1 mg Hemodynamics Rest BSA: 1.96 (m2) O2 Consumption: Estimated: 196.13 (ml/min) O2 Consumption indexed : Estimated:100.07 (ml/min/m) Heart Rate: 86 (bpm) Snapshots Pre Cath Intra NCS Post Cath Vital Signs Time Heart Resp SPO2 etCO2 NIBP (mmHg) Rhythm Pain Sedation Rate (ipm) (%) (mmHg) Status Level (bpm) 13:36:17 86 18 100 34.6 168/84(119) NSR 0 (11) 10(A) , No pain 13:41:16 85 20 100 34.6 Measuring NSR 0 (11) 10(A) , No pain 13:41:25 87 22 100 31.6 174/84(112) NSR 0 (11) 10(A) , No pain 13:45:51 89 15 100 36.1 181/79(128) NSR 0 (11) 10(A) , No pain 13:50:50 84 18 100 35.3 Measuring NSR 0 (11) 10(A) , No pain 13:51:12 84 19 100 33.8 169/78(132) NSR 0 (11) 10(A) , No pain 13:55:35 81 23 100 33 163/83(116) NSR 0 (11) 10(A) , No pain 13:59:57 86 13 100 29.3 180/85(126) NSR 0 (11) 10(A) , No pain 14:04:56 91 16 100 32.3 Measuring NSR 0 (11) 10(A) , No pain 14:05:20 88 14 100 18.8 174/85(114) NSR 0 (11) 10(A) , No pain 14:09:43 87 14 98 22.5 166/82(109) NSR 0 (11) 10(A) , No pain 14:14:01 92 17 98 31.5 160/77(117) NSR 0 (11) 10(A) , No pain 14:18:14 94 11 95 16.5 148/77(91) NSR 0 (11) 10(A) , No pain 14:22:33 95 11 98 39.8 137/67(100) NSR 0 (11) 10(A) , No pain 14:26:06 96 15 98 39.1 144/72(102) NSR 0 (11) 10(A) , No pain Medications Time Medication Route Dose Verified Delivered Reason Notes Effe ctiveness by by 13:53:57 Heparin Flush added 1 Benigno Pelaez used for Bag to bags Damien Quezada procedure (1000units/500ml field MD BEVERLY NS) 13:54:09 Lidocaine 1% added 20ml Benigno Pelaez for local to vial Damien Quezada anesthetic field MD BEVERLY 14:04:08 Fentanyl I.V. 50 Benigno Lamas for mcg Damien Longr RN sedation 14:04:18 Versed I.V. 1 mg Benigno Lamas for Damien Longr RN sedation 14:06:33 Fentanyl I.V. 50 Benigno Lamas for mcg Damien Longr RN sedation 14:06:42 Versed I.V. 1 mg Benigno Lamas for Damien Dotson RN sedation 14:16:49 Fentanyl I.V. 50 Benigno Cydney for mcg Damien Longr RN sedation 14:16:56 Versed I.V. 1 mg Benigno Lamas for Damien Longr RN sedation Procedure Log Time Note 13:05:36 Patient Height : 64 inches 13:05:45 Patient Weight : 200 lbs 13:06:09 Use device set IR Diagnostic 13:06:10 Tegaderm 4 x 4 (1626W) opened to sterile field. 13:06:11 Sterile Angiographic Pack opened to sterile field. 13:06:11 Bag Decanter (2002S) opened to sterile field. 13:13:03 Time tracking: Regular hours (M-F 7:00 - 5:00) 13:13:17 Plan of Care:Hemodynamics will remain stable., Cardiac rhythm will remain stable., Comfort level will be maintained., Respiratory function will remain adequate., Patient/ family verbilizes understanding of procedure., Procedure tolerated without complication., Recovers from procedure without complications.. 13:13:23 Patient received from Outpatients to IR Alert and oriented. Tansferred to table in Supine position. 13:13:26 Signed procedure consent form obtained from patient. 13:13:36 H&P Date Dictated: 06/30/2019 Within 30 days and on chart., H&P Addendu m completed by physician on day of procedure. (MUST COMPLETE FOR ALL OUTPATIENTS). 13:13:39 Pre-procedure instructions explained to patient. 13:13:39 Pre-op teaching completed and patient verbalized understanding. 13:13:42 Family in waiting room. 13:13:44 Patient NPO since Midnight. 13:13:53 Patient allergic to Codeine 13:14:37 Patient allergic to Toradol 13:14:57 Patient allergic to Other allergyFLAGYL 13:15:03 Is the patient allergic to Iodine/contrast media? No. 13:15:07 Is patient on blood thinner?No 13:15:11 Patient diabetic? No. 13:15:17 - 13:15:18 ----Pre-sedation anethsthesia assessment.---- 13:15:22 Previous problem with sedation/anesthesia? No ? 13:15:25 Snore? Yes 13:15:26 Sleep apnea? No 13:15:28 Deviated septum? No 13:15:30 Opens mouth fully? Yes 13:15:32 Sticks out tongue? Yes 13:15:38 Airway obstruction? No ? 13:15:42 Dentures? No ? 13:16:01 IV patent on arrival in right forearm with D5/.45%NaCl at O. 13:16:50 Right abdomen area was prepped with chlora-prep and draped in sterile fashion 13:16:53 - 13:35:08 ECG and BP/O2 sat monitors applied to patient. 13:35:09 Vital chart was started 13:35:11 Baseline sample Acquired. 13:35:12 Full Disclosure recording started 13:35:13 - 13:53:57 Heparin Flush Bag (1000units/500ml NS) 1 bags added to field was administered by Benigno Quezada MD; used for procedure; Verbal order read back and verified. 13:54:09 Lidocaine 1% 20ml vial added to field was administered by Benigno christensen MD; for local anesthetic; Verbal order read back and verified. 13:59:59 Physician arrived 14:00:00 --------ALL STOP TIME OUT------ 14:00:01 Final Timeout: patient, procedure, and site verified with staff and physician. All members of the team are in agreement. 14:00:18 Procedure started. 14:00:25 Local anesthetic to Abdominal area with Lidocaine 1% by Benigno Quezada MD.INITIAL ACCESS ONLY 14:04:08 Fentanyl 50 mcg I.V. was administered by Cydney Dotson RN; for sedation ; Verbal order read back and verified. 14:04:18 Versed 1 mg I.V. was administered by Cydney Dotson RN; for sedation; Verbal order read back and verified. 14:06:33 Fentanyl 50 mcg I.V. was administered by Cydney Dotson RN; for sedation ; Verbal order read back and verified. 14:06:42 Versed 1 mg I.V. was administered by Cydney Dotson RN; for sedation; Verbal order read back and verified. 14:16:49 Fentanyl 50 mcg I.V. was administered by Cydney Dotson RN; for sedation ; Verbal order read back and verified. 14:16:56 Versed 1 mg I.V. was administered by Cydney Dotson RN; for sedation; Verbal order read back and verified. 14:21:04 PLEUREX CATH REMOVED ALONG WITH 30CC'S OF FLUID. 14:22:09 DRESSED WITH STERI STRIPS 14:23:32 Procedure ended.(Physican Out) 14:23:56 Fluoroscopy time 00.20 minutes. 14:24:00 Fluoroscopy dose: 8 mGy 14:24:00 Flurop Dose total: 8 14:24:05 Contrast amount:Isovue 300 0ml. NO CONTRAST USED 14:27:32 Vital chart was stopped Device Usage Item Name Manufacture Quantity Catalog Hospital Part Current Minimal Lot# / Number Charge Number Stock Stock Serial# Code Tegaderm 4 x 3M 1 [id number] 5 4 (1626W) Sterile Cardinal 1 [id number] 5 Angiographic Health Pack Bag Decanter Microtek 1 [id number] 5 () Medical Inc. Signature Audit [place] Stage Time Signature Unsigned Intra-Procedure 06/30/2019 Cecilia Andres 2:27:28 PM RT(R) [place] [id number] [place] [address]
[~2019-06-30 10:21] MED LIST changes: +CARAFATE1 G
[2019-06-30 10:46] LABS: BASOPHILS 0.3 % (0-2); EOSINOPHILS 0 % (0-7); HEMATOCRIT 36.4 % (36.0-48.0); HEMOGLOBIN 11.8 g/dL (12-16); IMMATURE GRANULOCYTES 0.1 % (0-5); LYMPHOCYTES 16.5 % (15-50); MCH 32.4 pg (26.0-34.0); MCHC 32.4 g/dL (31.0-37.0); MEAN PLATELET VOLUME 10.1 fL (7.4-10.4); MONOCYTES 4.2 % (2-11); NEUTROPHILS 78.9 % (40-80); RBC 3.64 10x6/uL (4.00-5.40); RDW 13.2 % (11.5-14.5); WBC 7.1 10x3/uL (4.8-10.8)
[2019-06-30 10:47] LABS: PLATELET COUNT 253 10x3/uL (130-400)
[2019-06-30 10:56] LABS: APTT 26.9 SECONDS (22.8-39.4); INR 0.98 (0.85-1.17); PROTIME 12.5 SECONDS (11.6-15.0)
[2019-06-30 10:57] LABS: CALC OSMOLALITY 286 mosm/kg (275-300); CALCIUM 9.3 mg/dL (8.5-10.1); CARBON DIOXIDE 25.8 mmol/L (21.0-32.0); CHLORIDE - SERUM 109 mmol/L (98-107); CREATININE - SERUM 0.5 mg/dL (0.6-1.3); GLUCOSE 98 mg/dL (74-106); POTASSIUM - SERUM 4.1 mmol/L (3.5-5.1); SODIUM 145 mmol/L (136-145); UREA NITROGEN 7 mg/dL (7-18); eGFR NON AFRICAN AMERICAN > 90 mL/min (90-120)
[2019-06-30 12:21] VITALS: Ht 162.6 cm; Wt 909.1 kg
== END 2019-06-30 15:35 | disposition home or self-care (01) ==
LOC: D.SP 10:21 → D.RAD 13:00 → D.SP 15:35
PROVIDERS: Radiology Diagnostic Radiology; ATTEND Internal Medicine Medical Oncology
DX: C56.9 Malignant neoplasm of unspecified ovary (principal); D70.1 Agranulocytosis secondary to cancer chemotherapy

== ENCOUNTER 2020-05-28 11:18 | Day surgery (SDC) | payer BC ==
[~2020-05-28] VITALS: Ht 162.6 cm; Wt 106.4 kg
--- NOTE | ~2020-05-28 | HEMODYNAMI ---
PATIENT:MIQUEL REES MEDICAL RECORD: [id number] : 57 [id number] ADMISSION DATE: 05/28/20 Generatedon:05/28/202016:40 Patient name: MIQUEL REES Patient #: [id number] SSN: : 1955 Date of study: 05/28/2020 Page: Of Hemodynamic Procedure Report Patient Data Patient Demographics Procedure consent was obtained First Name: MIQUEL Gender: Female Last Name: CABRERA : 1955 [facility] Initial: SEYMOUR Age: 65 year(s) Patient #: [id number] Race: Unknown Additional ID: [id number] Contact details [address]: [address] [place] [address] State: [place] City: [place] Zip code: [address] Past Medical History Allergies Allergen Reaction Date Comments Reported Other allergy 12/11/2018 PCN Codeine 06/30/2019 Toradol 06/30/2019 Other allergy 06/30/2019 FLAGYL Other allergy 05/28/2020 PCN, CODEINE, FLAGIL, TORADOL, TAXOL Admission Admission Data Admission Date: 05/28/2020 Admission Time: 11:18 Procedure Procedure Types Cath Procedure Peripheral Cath Diagnostic Procedure Miscellaneous PARACENTESIS WITH GUIDE Procedure Description Procedure Date Procedure Date: 05/28/2020 Procedure Start Time: 16:17 Procedure Staff Name Function Toby Moya MD Performing Physician Chase Minaya RT Monitor NAM COLON RT Monitor Cydney Dotson RN Nurse Mia HDZ RN Nurse Procedure Medications Medication Administration Route Dosage Lidocaine 1% added to field 20 Hemodynamics Rest Heart Rate: 94 (bpm) Snapshots Pre Cath Intra NCS Post Cath Vital Signs Time Heart Resp SPO2 etCO2 NIBP (mmHg) Rhythm Pain Sedation Rate (ipm) (%) (mmHg) Status Level (bpm) 15:47:49 95 17 0 185/96(153) NSR 0 (11) 10(A) , No pain 15:52:17 100 20 100 0 183/102(145) NSR 0 (11) 10(A) , No pain 15:57:16 98 12 0 Measuring NSR 0 (11) 10(A) , No pain 15:57:51 96 19 0 190/95(154) NSR 0 (11) 10(A) , No pain 16:02:19 96 18 0 178/105(135) NSR 0 (11) 10(A) , No pain 16:06:48 95 26 0 194/107(148) NSR 0 (11) 10(A) , No pain 16:11:14 94 21 95 0 191/105(146) NSR 0 (11) 10(A) , No pain 16:15:46 96 19 97 0 205/102(135) NSR 0 (11) 10(A) , No pain 16:20:17 96 23 95 0 199/103(137) NSR 0 (11) 10(A) , No pain 16:24:45 100 10 94 0 193/109(147) NSR 0 (11) 10(A) , No pain 16:29:20 95 17 94 0 177/101(136) NSR 0 (11) 10(A) , No pain 16:33:44 93 10 96 0 175/99(123) NSR 0 (11) 10(A) , No pain 16:38:06 96 34 94 0 181/96(134) NSR 0 (11) 10(A) , No pain Medications Time Medication Route Dose Verified Delivered Reason Notes Effective ness by by 16:23:36 Lidocaine added 20ml Toby Luis for local 1% to vial Nita Moya MD anesthetic field Procedure Log Time Note 15:38:39 Mia HDZ RN sent for patient. Start room use. 15:39:07 Time tracking: Regular hours (M-F 7:00 - 5:00) 15:39:13 Plan of Care:Hemodynamics will remain stable., Cardiac rhythm will remain stable., Comfort level will be maintained., Respiratory function will remain adequate., Patient/ family verbilizes understanding of procedure., Procedure tolerated without complication., Recovers from procedure without complications.. 15:39:20 Patient received from Outpatients to IR Alert and oriented. Tansferred to table in Supine position. 15:39:23 Signed procedure consent form obtained from patient. 15:39:25 Correct patient and procedure confirmed by team. 15:39:26 ECG and BP/O2 sat monitors applied to patient. :39: Full Disclosure recording started :: - 15:39:57 Pre-procedure instructions explained to patient. :39:57 Pre-op teaching completed and patient verbalized understanding. 15:40:01 Family unavailable. 15:40:07 Is patient on blood thinner?No 15:40:13 Patient NPO since Midnight. 15:41:17 Patient allergic to Other allergyPCN, CODEINE, FLAGIL, TORADOL, TAXOL 15:41:20 Is the patient allergic to Iodine/contrast media? No. 15:41:26 - 15:41:27 ----Pre-sedation anethsthesia assessment.---- 15:41:29 Previous problem with sedation/anesthesia? No ? 15:41:31 Snore? No 15:41:34 Sleep apnea? No 15:41:35 Deviated septum? No 15:41:36 Opens mouth fully? Yes 15:41:38 Sticks out tongue? Yes 15:41:40 Airway obstruction? No ? 15:41:42 Dentures? No ? 15:41:43 - 15:41:54 Right abdomen area was prepped with chlora-prep and draped in sterile fashion 15:42: Alarms reviewed by Sabrina Mccray 15:42:01 Sharps counted by scrub and verified by RHenrry 15:42:03 - 15:46:34 Vital chart was started 15:46:35 Baseline sample Acquired. 15:46:39 - 16:04:39 Physician arrived 16:17:09 --------ALL STOP TIME OUT------ 16:17:09 Final Timeout: patient, procedure, and site verified with staff and physician. All members of the team are in agreement. 16:17:13 Left abdomen site verified by team. 16:17:19 Fire Safety Assessment: A--An alcohol-based skin anteseptic being used preoperatively., C--Open oxygen or nitrous oxide is being used. 16:17:28 Sedation plan: Local Anesthetic Medication:Lidocaine 16:17:42 Procedure started. 16:17:47 Local anesthetic to Abdominal area with Lidocaine 1% by Toby Moya MD.INITIAL ACCESS ONLY 16:17:49 [id number] CATH DRAIN TRAY opened to sterile field. 16:23:36 Lidocaine 1% 20ml vial added to field was administered by Toby Moya MD; for local anesthetic; Verbal order read back and verified. 16:38:50 Procedure ended.(Physican Out) 16:38:55 Sharps counted by scrub and verified by RIrinaN. 16:38:58 Insertion/operative site no bleeding no hematoma. 16:39:05 Post-op/insertion site Left Abdominal area dressed using a 4 x 4 and Tegaderm. 16:39:13 Post Abdominal area:stable 16:39:17 Procedure and supply charges have been captured, reviewed, submitted an d are correct. 16:39:20 Post procedure instruction explained to patient.Patient verbalizes understanding. 16:39:36 3050 LITERS DRAINED 16:39:46 Report given to Outpatients. 16:39:51 Patient transfered to Outpatients with Stretcher. 16:40:23 Vital chart was stopped Device Usage Item Name Manufacture Quantity Catalog Hospital Part Current Minimal Lot# / Number Charge Number Stock Stock Serial# Code [id number] [employer] 1 [id number] CATH DRAIN TRAY Signature Audit [place] Stage Time Signature Unsigned Intra-Procedure 05/28/2020 Chase 4:40:19 PM Marimar RT (R) (CV) [facility] [address] [place] [address]
[2020-05-28 12:02] LABS: ALBUMIN 3.7 g/dL (3.4-5.0); ANION GAP 12.8 mmol/L (8-16); BILIRUBIN - TOTAL 1.06 mg/dL (0.2-1.3); CARBON DIOXIDE 25.3 mmol/L (21.0-32.0); POTASSIUM - SERUM 4.1 mmol/L (3.5-5.1); PROTEIN - SERUM 7.3 g/dL (6.4-8.2)
[2020-05-28 12:07] LABS: CALCIUM 9.1 mg/dL (8.5-10.1)
[2020-05-28 12:16] LABS: APTT 27.5 SECONDS (22.8-39.4); INR 0.95 (0.85-1.17); PROTIME 12.7 SECONDS (11.6-15.0)
[2020-05-28] MEDS ORDERED: FUROSEMIDE20 MG PO (12:18)
[2020-05-28] MEDS ORDERED: ALDACTONE25 MG PO (12:18)
[2020-05-28] MEDS ORDERED: LINZESS72 MCG PO (12:19)
[2020-05-28] MEDS ORDERED: REGLAN5 MG (12:19)
[2020-05-28] MEDS ORDERED: LYNPARZA (12:20)
[2020-05-28 12:27] LABS: BASOPHILS 0.2 % (0-2); EOSINOPHILS 2.5 % (0-7); HEMATOCRIT 43.3 % (36.0-48.0); HEMOGLOBIN 14.1 g/dL (12-16); IMMATURE GRANULOCYTES 0.2 % (0-5); LYMPHOCYTES 23.8 % (15-50); MCH 30.9 pg (26.0-34.0); MCHC 32.6 g/dL (31.0-37.0); MEAN PLATELET VOLUME 10.1 fL (7.4-10.4); MONOCYTES 6.8 % (2-11); NEUTROPHILS 66.5 % (40-80); PLATELET COUNT 276 10x3/uL (130-400); RBC 4.56 10x6/uL (4.00-5.40); RDW 12.2 % (11.5-14.5); WBC 5.6 10x3/uL (4.8-10.8)
[2020-05-28 12:39] VITALS: Ht 162.6 cm; Wt 106.4 kg
--- NOTE | 2020-05-28 17:46 | NUR ---
PT RECEIVED AFTER PARACENTESIS W/O ANESTHESIA IN STABLE CONDITION. WITHOUT C/O. BP 168/80 HR 82 SAT95 RR 18 DRSG CDI AND W/O S/S OF HEMATOMA. DISCHARGED IN STABLE CONDITION
== END 2020-05-28 17:35 | disposition home or self-care (01) ==
LOC: D.SP 11:18 → D.CT 15:00 → D.SP 17:35
PROVIDERS: General Practice; ATTEND Internal Medicine Medical Oncology
DX: C56.9 Malignant neoplasm of unspecified ovary (principal); D70.1 Agranulocytosis secondary to cancer chemotherapy; Z23 Encounter for immunization; E86.0 Dehydration; R60.0 Localized edema

== ENCOUNTER 2020-06-21 06:21 | Outpatient (CLI) | payer BC ==
[~2020-06-21] VITALS: Ht 162.6 cm; Wt 104.5 kg
[~2020-06-21 06:21] MED LIST changes: +FUROSEMIDE20 MG PO; +LINZESS72 MCG PO; +LYNPARZA; +REGLAN5 MG
[2020-06-21 06:48] LABS: BASOPHILS 0.4 % (0-2); EOSINOPHILS 0.8 % (0-7); HEMATOCRIT 39.1 % (36.0-48.0); IMMATURE GRANULOCYTES 0.4 % (0-5); LYMPHOCYTES 20.5 % (15-50); MCH 31.1 pg (26.0-34.0); MCHC 33.2 g/dL (31.0-37.0); MCV 93.5 fL (80.0-100.0); MEAN PLATELET VOLUME 10.1 fL (7.4-10.4); MONOCYTES 6.5 % (2-11); NEUTROPHILS 71.4 % (40-80); PLATELET COUNT 241 10x3/uL (130-400); RBC 4.18 10x6/uL (4.00-5.40); RDW 13.7 % (11.5-14.5); WBC 4.8 10x3/uL (4.8-10.8)
[2020-06-21 06:49] LABS: ANION GAP 10.2 mmol/L (8-16); CALCIUM 9.1 mg/dL (8.5-10.1); CARBON DIOXIDE 25.9 mmol/L (21.0-32.0); CREATININE - SERUM 0.9 mg/dL (0.6-1.3); POTASSIUM - SERUM 4.1 mmol/L (3.5-5.1)
[2020-06-21 07:13] LABS: APTT 27.2 SECONDS (22.8-39.4); INR 0.97 (0.85-1.17); PROTIME 12.9 SECONDS (11.6-15.0)
[2020-06-21 08:56] VITALS: BP 126/76; Ht 162.6 cm; Wt 104.5 kg
--- NOTE | 2020-06-21 12:10 | NUR ---
RIGHT WRIST PIV DC'D WITH TIP INTACT. DISCHARGE INSTRUCTIONS REVIEWED WITH PATIENT AND SPOUSE, PATIENT DRESSING IN PERSONAL CLOTHING
[2020-06-21 18:49] LABS: EOS BF 3 %; MACROPHAGES BF 4 %; MESOTHELIALS BF 4 %; NEUT - BF 22 %
== END 2020-06-21 12:15 | disposition home or self-care (01) ==
LOC: D.SP 06:21 → D.RAD 09:00 → D.SP 09:00
PROVIDERS: Specialist; ATTEND Internal Medicine Medical Oncology
DX: C56.9 Malignant neoplasm of unspecified ovary (principal); D70.1 Agranulocytosis secondary to cancer chemotherapy; E86.0 Dehydration; R18.8 Other ascites